=== PATIENT | female | born 1965 | race Caucasian/White ===

== ENCOUNTER → 2021-03-31 12:26 | Outpatient (BNVA) | payer MEDICARE, MEDICAID, SELFPAY | PROVIDERS: Family Provider Internal Medicine; PCP Internal Medicine; Visit Provider Family Medicine | DX: Z20.822 Contact with and (suspected) exposure to COVID-19 (principal) | CPT/HCPCS: 87635 ==

== ENCOUNTER 2021-04-03 09:04 | Inpatient (IN) | payer MEDICARE, MEDICAID, SELFPAY ==
[2021-04-03] VITALS (35 sets, daily range): BP systolic 68–161; BP diastolic 46–107; PULSE 78–118; RESP 15–36; TEMP 36.8–37.1; O2SAT 86–100; BMI 29.0
--- NOTE | 2021-04-03 09:05 | ED_ITS ---
Documented by User: Kurt Mann DO 04/06/21 09:50 HPI - COVID General: Chief Complaint: Shortness of Breath/Dyspnea Stated Complaint: SOB/ N/V/ WEAKNESS Time Seen by Provider: 04/03/21 09:05 History of Present Illness: HPI Narrative: 55-year-old female who presents to the emergency room complaining of being sick for the last 2 weeks. She was seen in urgent care on 03 31 and reports having had a Covid test. She called EMS because she was increasingly short of breath they found her to be at 76% on room air she corrects into the upper 90s with 6 L by nasal cannula. She has myalgias fatigue and had had some loose stools as well. She was placed on Ceftin and a cough medicine on 03 27.. She has a history of hypertension and reflux as well as hypothyroidism. A PCR Covid test on 03/31 was positive patient was not aware of it until we informed her today. MD complaint: known COVID positive Prior covid testing: yes, results known Prior testing date: 03/31/21 COVID 19 common symptoms: positive fever(s), chills, cough, non-productive cough, dyspnea, fatigue, body aches, throat pain, nasal congestion, nausea and diarrhea; negative loss of sense of smell and/or taste COVID 19 other sytmptoms: positive requiring oxygen; negative chest pain Onset (ago): day(s) (+10) Severity: severe Pertinent comorbid conditions: hypertension Treatment prior to arrival: cold medicine and antibiotics COVID Results: SARS-CoV-2 RNA (RT-PCR) Detected (NOT DETECTED) A 03/31/21 12:26 03/31/21 Review of Systems Const: Reports: fever(s), chills, body aches and fatigue ENMT: Reports: throat pain and nasal congestion Card: Denies: chest pain, edema, dyspnea on exertion or orthopnea Resp: Reports: dyspnea and non-productive cough GI: Reports: nausea and diarrhea : Denies: flank pain, difficulty voiding, dysuria, urinary frequency or urinary urgency Skin/Breast: Denies: rash or pruritus PFSH ED PFSH: Medical History (Updated 04/06/21 @ 09:50 by Kurt Mann DO) Affective personality disorder Anxiety state Arthritis Dependent personality disorder Depression GERD (gastroesophageal reflux disease) History of dysthymic disorder Hypothyroidism IBS (irritable bowel syndrome) Obsessive compulsive disorder Onychomycosis of toenail Surgical History Hx of bladder repair surgery Family History Family/Other Diabetes Denies family history of CAD (coronary artery disease) Clotting disorder Dementia Hyperlipidemia Psychiatric illness Chronic kidney disease (CKD) Suicide Anesthesia complication Bleeding disorder Family history of premature coronary artery disease Lung disease Cancer Hypertension Stroke Social History Smoking and tobacco status: never smoked Alcohol intake: never Current occupational status: disabled Physical Exam Const: GENERAL APPEARANCE: cooperative ORIENTATION/CONSCIOUSNESS: Yes awake, Yes oriented to person, Yes oriented to place and Yes oriented to time HENMT: COMMON NORMALS: normocephalic, atraumatic and hearing grossly normal bilaterally HEAD & SCALP: normocephalic and atraumatic Neck/C-Spine: COMMON NORMALS: no JVD Resp: EFFORT & INSPECTION: Yes tachypneic AUSCULTATION: crackles, wheezes and diminished lung sounds Cardio: COMMON NORMALS: no JVD, regular rate and No murmurs present (Cardio) RATE: regular rate and tachycardic GI: COMMON NORMALS: Soft to palpation and No hepatosplenomegaly present AUSCULTATION: Yes normoactive bowel sounds PALPATION: Yes Soft to palpation, No Tenderness to palpation present (GI), No Guarding due to palpation present (GI) and Yes No hepatosplenomegaly present Extremity: COMMON NORMALS: normal to inspection, capillary refill normal, no clubbing, cyanosis or edema, no calf tenderness and no pedal edema Neuro: SENSORIUM/ORIENTATION: Yes oriented to person, Yes oriented to place and Yes oriented to time Skin: COMMON NORMALS: no rashes or lesions noted GENERAL SKIN EXAM: no rashes or lesions noted Procedures Intubation Time out performed: Yes sedative: Etomidate paralytic: Vecuronium Laryngoscope: fiber optic video scope Assist Device Used: Bougie ET Tube Size: 7.5 ET Tube Uncuffed: No Tube Secured Depth (cm): 22 Tube Placement Confirmation: visualized tube passing through cords, equal breath sounds bilaterally, no breath sounds over epigastrium and confirmation by capnometry Intubation Complications: difficult intubation Additional Comments: Strongly difficult intubation. Dr. Weaver initially made an attempt was unable to visualize the cord we then bagged the patient and I made an attempt at difficulty due to her anatomy initializing visualizing the cords. Attempt was abandoned again and patient was hyperventilated. Third attempt was made with a bougie lower unable to get into position with the bougie. Equipment was readjusted and on the fourth attempt was able to get the bougie into place. We were able to get a 7.5 to pass over the bougie we had good color change on the capnometer and good breath sounds. Her sats are improving. Intubation was also complicated by a tear of the posterior pharyngeal wall on the right no significant bleeding was noted. Course Vital Signs: Vital signs: Vital Signs Temperature 98.2 F 04/03/21 16:00 Pulse Rate 70 04/04/21 13:30 Respiratory Rate 18 04/04/21 13:30 Blood Pressure 84/58 04/04/21 13:30 Pulse Oximetry 95 04/04/21 13:30 MDM - COVID MDM Narrative: Medical decision making narrative: She continued to deteriorate while in the ER. Ultimately ended up requiring intubation. Due to her anatomy she was an extremely difficult intubation. Hospitalist was consulted she is maintained in the ER until we are able to find a bed to transfer to a different facility. She was transferred because there is no ICU beds available in our facility. Patient had a prolonged ER stay due to regional shortage of ICU beds and was managed in the emergency room. Lab Data: Labs: Lab Results 04/03/21 04/03/21 04/03/21 Range/Units 09:20 09:20 09:20 WBC 11.7 H (4.0-10.0) 10^3/ uL RBC 4.50 (4.1-5.3) 10^6/u L Hgb 13.4 (11.5-15.3) g/dL Hct 42.1 (37.0-47.0) % MCV 93.6 (81-99) fL MCH 29.8 (28.0-34.0) pg MCHC 31.8 (30.0-36.0) g/dL RDW 15.2 H (12.1-15.1) % Plt Count 230 (130-400) 10^3/c mm MPV 10.5 H (7.4-10.4) fL Neut % (Auto) 90.6 % Lymph % (Auto) 4.8 % [place] % (Auto) 3.4 % Eos % (Auto) 0.1 % Baso % (Auto) 0.3 % Neut # (Auto) 10.62 H (1.8-7.7) 10^3/u L Lymph # (Auto) 0.6 L (0.8-4.8) 10^3/u L [place] # (Auto) 0.4 (0.2-0.9) 10^3/u L Eos # (Auto) 0.0 (0.0-0.8) 10^3/u L Baso # (Auto) 0.0 (0.0-0.1) 10^3/u L Nucleated RBC % (a uto) 0 % Nucleated RBCs # 0.0 /100WBC D-Dimer 1.60 H (0-0.59) ug/mIFE U Specimen Type Sample Site ABG pH (7.35-7.45) ABG pCO2 (35-45) mmHg ABG pO2 (80.0-100.0) mmH g ABG HCO3 (22-26) mmol/L ABG O2 Saturation ABG Base Excess (-2.0-2.0) mmol/ L Lavelle Test A-a O2 Gradient (5-10) mmHg Hematocrit (37-47) % Hgb O2 Saturation (95-100) % Carboxyhemoglobin (0.4-20.1) %THgb Methemoglobin (0.4-1.5) % Total Hemoglobin (12-16) g/dL Ionized Calcium (1.1-1.4) mmol/L O2 Delivery Device O2 Liters/Min % FiO2 % Tidal Volume PEEP cmH20 Guest Experience Captain ID Sodium 135 L (136-145) mmol/L Potassium 4.4 (3.5-5.1) mmol/L Chloride 100 (98-107) mmol/L Carbon Dioxide 24 (22-29) mmol/L Anion Gap 15.4 (5-19) BUN 15 (6-20) mg/dL Creatinine 1.0 H (0.5-0.9) mg/dL GFR Calculation 57.1 L (90-130) mL/min Glucose 192 H (65-115) mg/dL Calculated Osmolal ity 286 (285-295) mOsm/k g Lactic Acid (0.5-2.2) mmol/L Calcium 7.4 L (8.5-10.5) mg/dL Total Bilirubin 0.2 (0.15-1.2) mg/dL AST 44 H (0-32) U/L ALT 32 (0-33) U/L Alkaline Phosphata se 87 (35-105) IU/L Creatine Kinase 267 H (26-192) U/L C-Reactive Protein 175.9 H (0.0-4.9) mg/L NT-Pro-B Natriuret Pep 369 H (0-125) pg/mL Total Protein 5.2 L (6.6-8.7) g/dL Albumin 2.7 L (3.5-5.2) g/dL Globulin 2.5 (1.3-4.6) g/dL Procalcitonin (0-0.5) ng/mL 04/03/21 04/03/21 04/03/21 Range/Units 09:20 09:20 09:49 WBC (4.0-10.0) 10^3/ uL RBC (4.1-5.3) 10^6/u L Hgb (11.5-15.3) g/dL Hct (37.0-47.0) % MCV (81-99) fL MCH (28.0-34.0) pg MCHC (30.0-36.0) g/dL RDW (12.1-15.1) % Plt Count (130-400) 10^3/c mm MPV (7.4-10.4) fL Neut % (Auto) % Lymph % (Auto) % [place] % (Auto) % Eos % (Auto) % Baso % (Auto) % Neut # (Auto) (1.8-7.7) 10^3/u L Lymph # (Auto) (0.8-4.8) 10^3/u L [place] # (Auto) (0.2-0.9) 10^3/u L Eos # (Auto) (0.0-0.8) 10^3/u L Baso # (Auto) (0.0-0.1) 10^3/u L Nucleated RBC % (a uto) % Nucleated RBCs # /100WBC D-Dimer (0-0.59) ug/mIFE U Specimen Type Arterial Sample Site Radial, right ABG pH 7.45 (7.35-7.45) ABG pCO2 32.6 L (35-45) mmHg ABG pO2 45.7 L (80.0-100.0) mmH g ABG HCO3 22.7 (22-26) mmol/L ABG O2 Saturation 83.6 ABG Base Excess -0.5 (-2.0-2.0) mmol/ L Lavelle Test Pos A-a O2 Gradient 29.5 H (5-10) mmHg Hematocrit 43.1 (37-47) % Hgb O2 Saturation 82.0 L (95-100) % Carboxyhemoglobin 1.0 (0.4-20.1) %THgb Methemoglobin 1.0 (0.4-1.5) % Total Hemoglobin 14.1 (12-16) g/dL Ionized Calcium 1.1 (1.1-1.4) mmol/L O2 Delivery Device Nc O2 Liters/Min 6.0 % FiO2 44.0 % Tidal Volume PEEP cmH20 Guest Experience Captain ID Amh Sodium 137.0 (136-145) mmol/L Potassium 3.9 (3.5-5.1) mmol/L Chloride (98-107) mmol/L Carbon Dioxide (22-29) mmol/L Anion Gap (5-19) BUN (6-20) mg/dL Creatinine (0.5-0.9) mg/dL GFR Calculation (90-130) mL/min Glucose 177.0 H (65-115) mg/dL Calculated Osmolal ity (285-295) mOsm/k g Lactic Acid 1.6 (0.5-2.2) mmol/L Calcium (8.5-10.5) mg/dL Total Bilirubin (0.15-1.2) mg/dL AST (0-32) U/L ALT (0-33) U/L Alkaline Phosphata se (35-105) IU/L Creatine Kinase (26-192) U/L C-Reactive Protein (0.0-4.9) mg/L NT-Pro-B Natriuret Pep (0-125) pg/mL Total Protein (6.6-8.7) g/dL Albumin (3.5-5.2) g/dL Globulin (1.3-4.6) g/dL Procalcitonin 0.25 (0-0.5) ng/mL 04/03/21 04/03/21 Range/Units 13:43 16:33 WBC (4.0-10.0) 10^3/ uL RBC (4.1-5.3) 10^6/u L Hgb (11.5-15.3) g/dL Hct (37.0-47.0) % MCV (81-99) fL MCH (28.0-34.0) pg MCHC (30.0-36.0) g/dL RDW (12.1-15.1) % Plt Count (130-400) 10^3/c mm MPV (7.4-10.4) fL Neut % (Auto) % Lymph % (Auto) % [place] % (Auto) % Eos % (Auto) % Baso % (Auto) % Neut # (Auto) (1.8-7.7) 10^3/u L Lymph # (Auto) (0.8-4.8) 10^3/u L [place] # (Auto) (0.2-0.9) 10^3/u L Eos # (Auto) (0.0-0.8) 10^3/u L Baso # (Auto) (0.0-0.1) 10^3/u L Nucleated RBC % (a uto) % Nucleated RBCs # /100WBC D-Dimer (0-0.59) ug/mIFE U Specimen Type Arterial Arterial Sample Site Radial, left Radial, left ABG pH 7.44 7.23 L (7.35-7.45) ABG pCO2 33.7 L 50.6 H (35-45) mmHg ABG pO2 48.0 L 174.0 H (80.0-100.0) mmH g ABG HCO3 23.1 21.3 L (22-26) mmol/L ABG O2 Saturation 85.5 ABG Base Excess -0.4 -6.8 L (-2.0-2.0) mmol/ L Lavelle Test Pos Pos A-a O2 Gradient 46.5 H (5-10) mmHg Hematocrit 44.6 50.0 H (37-47) % Hgb O2 Saturation 83.9 L (95-100) % Carboxyhemoglobin 0.9 (0.4-20.1) %THgb Methemoglobin 1.0 (0.4-1.5) % Total Hemoglobin 14.6 (12-16) g/dL Ionized Calcium 1.1 (1.1-1.4) mmol/L O2 Delivery Device Nc Vent O2 Liters/Min 40.0 % FiO2 63.0 100.0 % Tidal Volume 0.43 PEEP 10.0 cmH20 Guest Experience Captain ID Buttr Amh Sodium 141.0 (136-145) mmol/L Potassium 4.4 (3.5-5.1) mmol/L Chloride (98-107) mmol/L Carbon Dioxide (22-29) mmol/L Anion Gap (5-19) BUN (6-20) mg/dL Creatinine (0.5-0.9) mg/dL GFR Calculation (90-130) mL/min Glucose 145.0 H (65-115) mg/dL Calculated Osmolal ity (285-295) mOsm/k g Lactic Acid (0.5-2.2) mmol/L Calcium (8.5-10.5) mg/dL Total Bilirubin (0.15-1.2) mg/dL AST (0-32) U/L ALT (0-33) U/L Alkaline Phosphata se (35-105) IU/L Creatine Kinase (26-192) U/L C-Reactive Protein (0.0-4.9) mg/L NT-Pro-B Natriuret Pep (0-125) pg/mL Total Protein (6.6-8.7) g/dL Albumin (3.5-5.2) g/dL Globulin (1.3-4.6) g/dL Procalcitonin (0-0.5) ng/mL COVID Results: SARS-CoV-2 RNA (RT-PCR) Detected (NOT DETECTED) A 03/31/21 12:26 03/31/21 Critical Care Time Critical Care Time: Critical Care Time: Yes Total Critical Care Time: 60 Attestation: This case had a high probability of a clinically significant, sudden, or life threatening deterioration of this patient's condition which required my full and direct attention, intervention and personal management. Discharge Plan Discharge Patient Disposition: Xfer Short-Term Hosp Clinical Impression: COVID-19, Respiratory failure, Obesity, Hyperkalemia, Pulmonary emboli Discharge Orders: Transfer Out of Facility (Order); Ordered 04/04/21 Ordered By: Giovani Schluz Coding Level of Care Code ED Secondary Art Teacher for Chg Fwd Exam Comprehensive Documented by User: Corbin Curry MD 04/03/21 20:23 HPI - COVID General: Chief Complaint: Shortness of Breath/Dyspnea Stated Complaint: SOB/ N/V/ WEAKNESS Time Seen by Provider: 04/03/21 09:05 COVID Results: SARS-CoV-2 RNA (RT-PCR) Detected (NOT DETECTED) A 03/31/21 12:26 03/31/21 PFS ED PFSH: Medical History (Updated 04/06/21 @ 09:50 by Kurt Mann DO) Affective personality disorder Anxiety state Arthritis Dependent personality disorder Depression GERD (gastroesophageal reflux disease) History of dysthymic disorder Hypothyroidism IBS (irritable bowel syndrome) Obsessive compulsive disorder Onychomycosis of toenail Surgical History Hx of bladder repair surgery Family History Family/Other Diabetes Denies family history of CAD (coronary artery disease) Clotting disorder Dementia Hyperlipidemia Psychiatric illness Chronic kidney disease (CKD) Suicide Anesthesia complication Bleeding disorder Family history of premature coronary artery disease Lung disease Cancer Hypertension Stroke Social History Smoking and tobacco status: never smoked Alcohol intake: never Current occupational status: disabled Procedures Central Line Placement Right IJ: Time Out Performed: Yes Patient Placed on Monitor/Pulse Ox: Yes Prep: mask, gown and gloves Central Line Prep: Chlorhexidine scrub and sterile drapes applied Ultrasound Used for Placement: Yes Central Line Lumen Inserted: triple Post Procedure: sutured in place, good blood return, all ports aspirated, flushed, capped and sterile dressing applied Post Procedure X-Ray: no pneumothorax seen and other (tip curled. repositioned and repeat xray. ) Patient Tolerated Procedure: well Complications: none Course Vital Signs: Vital signs: Vital Signs Temperature 98.2 F 04/03/21 16:00 Pulse Rate 70 04/04/21 13:30 Respiratory Rate 18 04/04/21 13:30 Blood Pressure 84/58 04/04/21 13:30 Pulse Oximetry 95 04/04/21 13:30 MDM - COVID Lab Data: Labs: Lab Results 04/03/21 04/03/21 04/03/21 Range/Units 09:20 09:20 09:20 WBC 11.7 H (4.0-10.0) 10^3/ uL RBC 4.50 (4.1-5.3) 10^6/u L Hgb 13.4 (11.5-15.3) g/dL Hct 42.1 (37.0-47.0) % MCV 93.6 (81-99) fL MCH 29.8 (28.0-34.0) pg MCHC 31.8 (30.0-36.0) g/dL RDW 15.2 H (12.1-15.1) % Plt Count 230 (130-400) 10^3/c mm MPV 10.5 H (7.4-10.4) fL Neut % (Auto) 90.6 % Lymph % (Auto) 4.8 % [place] % (Auto) 3.4 % Eos % (Auto) 0.1 % Baso % (Auto) 0.3 % Neut # (Auto) 10.62 H (1.8-7.7) 10^3/u L Lymph # (Auto) 0.6 L (0.8-4.8) 10^3/u L [place] # (Auto) 0.4 (0.2-0.9) 10^3/u L Eos # (Auto) 0.0 (0.0-0.8) 10^3/u L Baso # (Auto) 0.0 (0.0-0.1) 10^3/u L Nucleated RBC % (a uto) 0 % Nucleated RBCs # 0.0 /100WBC D-Dimer 1.60 H (0-0.59) ug/mIFE U Specimen Type Sample Site ABG pH (7.35-7.45) ABG pCO2 (35-45) mmHg ABG pO2 (80.0-100.0) mmH g ABG HCO3 (22-26) mmol/L ABG O2 Saturation ABG Base Excess (-2.0-2.0) mmol/ L Lavelle Test A-a O2 Gradient (5-10) mmHg Hematocrit (37-47) % Hgb O2 Saturation (95-100) % Carboxyhemoglobin (0.4-20.1) %THgb Methemoglobin (0.4-1.5) % Total Hemoglobin (12-16) g/dL Ionized Calcium (1.1-1.4) mmol/L O2 Delivery Device O2 Liters/Min % FiO2 % Tidal Volume PEEP cmH20 Guest Experience Captain ID Sodium 135 L (136-145) mmol/L Potassium 4.4 (3.5-5.1) mmol/L Chloride 100 (98-107) mmol/L Carbon Dioxide 24 (22-29) mmol/L Anion Gap 15.4 (5-19) BUN 15 (6-20) mg/dL Creatinine 1.0 H (0.5-0.9) mg/dL GFR Calculation 57.1 L (90-130) mL/min Glucose 192 H (65-115) mg/dL Calculated Osmolal ity 286 (285-295) mOsm/k g Lactic Acid (0.5-2.2) mmol/L Calcium 7.4 L (8.5-10.5) mg/dL Total Bilirubin 0.2 (0.15-1.2) mg/dL AST 44 H (0-32) U/L ALT 32 (0-33) U/L Alkaline Phosphata se 87 (35-105) IU/L Creatine Kinase 267 H (26-192) U/L C-Reactive Protein 175.9 H (0.0-4.9) mg/L NT-Pro-B Natriuret Pep 369 H (0-125) pg/mL Total Protein 5.2 L (6.6-8.7) g/dL Albumin 2.7 L (3.5-5.2) g/dL Globulin 2.5 (1.3-4.6) g/dL Procalcitonin (0-0.5) ng/mL 04/03/21 04/03/21 04/03/21 Range/Units 09:20 09:20 09:49 WBC (4.0-10.0) 10^3/ uL RBC (4.1-5.3) 10^6/u L Hgb (11.5-15.3) g/dL Hct (37.0-47.0) % MCV (81-99) fL MCH (28.0-34.0) pg MCHC (30.0-36.0) g/dL RDW (12.1-15.1) % Plt Count (130-400) 10^3/c mm MPV (7.4-10.4) fL Neut % (Auto) % Lymph % (Auto) % [place] % (Auto) % Eos % (Auto) % Baso % (Auto) % Neut # (Auto) (1.8-7.7) 10^3/u L Lymph # (Auto) (0.8-4.8) 10^3/u L [place] # (Auto) (0.2-0.9) 10^3/u L Eos # (Auto) (0.0-0.8) 10^3/u L Baso # (Auto) (0.0-0.1) 10^3/u L Nucleated RBC % (a uto) % Nucleated RBCs # /100WBC D-Dimer (0-0.59) ug/mIFE U Specimen Type Arterial Sample Site Radial, right ABG pH 7.45 (7.35-7.45) ABG pCO2 32.6 L (35-45) mmHg ABG pO2 45.7 L (80.0-100.0) mmH g ABG HCO3 22.7 (22-26) mmol/L ABG O2 Saturation 83.6 ABG Base Excess -0.5 (-2.0-2.0) mmol/ L Lavelle Test Pos A-a O2 Gradient 29.5 H (5-10) mmHg Hematocrit 43.1 (37-47) % Hgb O2 Saturation 82.0 L (95-100) % Carboxyhemoglobin 1.0 (0.4-20.1) %THgb Methemoglobin 1.0 (0.4-1.5) % Total Hemoglobin 14.1 (12-16) g/dL Ionized Calcium 1.1 (1.1-1.4) mmol/L O2 Delivery Device Nc O2 Liters/Min 6.0 % FiO2 44.0 % Tidal Volume PEEP cmH20 Guest Experience Captain ID Amh Sodium 137.0 (136-145) mmol/L Potassium 3.9 (3.5-5.1) mmol/L Chloride (98-107) mmol/L Carbon Dioxide (22-29) mmol/L Anion Gap (5-19) BUN (6-20) mg/dL Creatinine (0.5-0.9) mg/dL GFR Calculation (90-130) mL/min Glucose 177.0 H (65-115) mg/dL Calculated Osmolal ity (285-295) mOsm/k g Lactic Acid 1.6 (0.5-2.2) mmol/L Calcium (8.5-10.5) mg/dL Total Bilirubin (0.15-1.2) mg/dL AST (0-32) U/L ALT (0-33) U/L Alkaline Phosphata se (35-105) IU/L Creatine Kinase (26-192) U/L C-Reactive Protein (0.0-4.9) mg/L NT-Pro-B Natriuret Pep (0-125) pg/mL Total Protein (6.6-8.7) g/dL Albumin (3.5-5.2) g/dL Globulin (1.3-4.6) g/dL Procalcitonin 0.25 (0-0.5) ng/mL 04/03/21 04/03/21 Range/Units 13:43 16:33 WBC (4.0-10.0) 10^3/ uL RBC (4.1-5.3) 10^6/u L Hgb (11.5-15.3) g/dL Hct (37.0-47.0) % MCV (81-99) fL MCH (28.0-34.0) pg MCHC (30.0-36.0) g/dL RDW (12.1-15.1) % Plt Count (130-400) 10^3/c mm MPV (7.4-10.4) fL Neut % (Auto) % Lymph % (Auto) % [place] % (Auto) % Eos % (Auto) % Baso % (Auto) % Neut # (Auto) (1.8-7.7) 10^3/u L Lymph # (Auto) (0.8-4.8) 10^3/u L [place] # (Auto) (0.2-0.9) 10^3/u L Eos # (Auto) (0.0-0.8) 10^3/u L Baso # (Auto) (0.0-0.1) 10^3/u L Nucleated RBC % (a uto) % Nucleated RBCs # /100WBC D-Dimer (0-0.59) ug/mIFE U Specimen Type Arterial Arterial Sample Site Radial, left Radial, left ABG pH 7.44 7.23 L (7.35-7.45) ABG pCO2 33.7 L 50.6 H (35-45) mmHg ABG pO2 48.0 L 174.0 H (80.0-100.0) mmH g ABG HCO3 23.1 21.3 L (22-26) mmol/L ABG O2 Saturation 85.5 ABG Base Excess -0.4 -6.8 L (-2.0-2.0) mmol/ L Lavelle Test Pos Pos A-a O2 Gradient 46.5 H (5-10) mmHg Hematocrit 44.6 50.0 H (37-47) % Hgb O2 Saturation 83.9 L (95-100) % Carboxyhemoglobin 0.9 (0.4-20.1) %THgb Methemoglobin 1.0 (0.4-1.5) % Total Hemoglobin 14.6 (12-16) g/dL Ionized Calcium 1.1 (1.1-1.4) mmol/L O2 Delivery Device Nc Vent O2 Liters/Min 40.0 % FiO2 63.0 100.0 % Tidal Volume 0.43 PEEP 10.0 cmH20 Guest Experience Captain ID Buttr Amh Sodium 141.0 (136-145) mmol/L Potassium 4.4 (3.5-5.1) mmol/L Chloride (98-107) mmol/L Carbon Dioxide (22-29) mmol/L Anion Gap (5-19) BUN (6-20) mg/dL Creatinine (0.5-0.9) mg/dL GFR Calculation (90-130) mL/min Glucose 145.0 H (65-115) mg/dL Calculated Osmolal ity (285-295) mOsm/k g Lactic Acid (0.5-2.2) mmol/L Calcium (8.5-10.5) mg/dL Total Bilirubin (0.15-1.2) mg/dL AST (0-32) U/L ALT (0-33) U/L Alkaline Phosphata se (35-105) IU/L Creatine Kinase (26-192) U/L C-Reactive Protein (0.0-4.9) mg/L NT-Pro-B Natriuret Pep (0-125) pg/mL Total Protein (6.6-8.7) g/dL Albumin (3.5-5.2) g/dL Globulin (1.3-4.6) g/dL Procalcitonin (0-0.5) ng/mL COVID Results: SARS-CoV-2 RNA (RT-PCR) Detected (NOT DETECTED) A 03/31/21 12:26 03/31/21 Discharge Plan Discharge Patient Disposition: Xfer Short-Term Hosp Clinical Impression: COVID-19, Respiratory failure, Obesity, Hyperkalemia, Pulmonary emboli Discharge Orders: Transfer Out of Facility (Order); Ordered 04/04/21 Ordered By: Giovani Schulz Coding Level of Care Code ED Secondary Art Teacher for Chg Fwd Exam Comprehensive
--- NOTE | 2021-04-03 09:25 | PC.NURSE ---
patient c/o chest pain with cough, denied any chest pain at this time. c/o weakness, body ache.
--- NOTE | 2021-04-03 09:27 | XRR_ITS ---
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 Views: 1 view. COMPARISON: CT abdomen pelvis w con* [id number] 06/13/2016 1:29 PM FINDINGS: Lungs: Patchy diffuse interstitial and alveolar airspace disease throughout much of the right lung most pronounced in the mid lung and lower lobe and to a lesser degree on the left. Edema and/or pneumonia. Pleural spaces: Moderate subpulmonic effusion on the right. Heart/Mediastinum: Unremarkable. No cardiomegaly. Bones/joints: Unremarkable. XR/XR chest 1V portable [id number] IMPRESSION: 1. Patchy diffuse interstitial and alveolar airspace disease throughout much of the right lung most pronounced in the mid lung and lower lobe and to a lesser degree on the left. Edema and/or pneumonia. Likely infectious. 2. Moderate subpulmonic effusion on the right.
[2021-04-03 09:37] LABS: Basophils % 0.3 %; Eosinophils % 0.1 %; Hematocrit 42.1 % (37.0-47.0); Hemoglobin 13.4 g/dL (11.5-15.3); Lymphocytes # 0.6 10^3/uL (0.8-4.8); Lymphocytes % 4.8 %; Mean Corpuscular HGB Conc 31.8 g/dL (30.0-36.0); Mean Corpuscular Hemoglobin 29.8 pg (28.0-34.0); Mean Corpuscular Volume 93.6 fL (81-99); Mean Platelet Volume 10.5 fL (7.4-10.4); Monocytes # 0.4 10^3/uL (0.2-0.9); Monocytes % 3.4 %; Neutrophils # 10.62 10^3/uL (1.8-7.7); Neutrophils % 90.6 %; Nucleated Red Blood Cells % 0 %; Platelet Count 230 10^3/cmm (130-400); Red Cell Distribution Width 15.2 % (12.1-15.1); White Blood Count 11.7 10^3/uL (4.0-10.0)
[2021-04-03 09:55] LABS: Lactic Sepsis W/Reflex 1.6 mmol/L (0.5-2.2)
[2021-04-03 10:00] LABS: ABG PCO2 32.6 mmHg (35-45); ABG PH Result 7.45 (7.35-7.45); Alveolar-Arterial Oxygen Gradi 29.5 mmHg (5-10); Arterial Blood Gas Hematocrit 43.1 % (37-47); Base Excess ABG -0.5 mmol/L (-2.0-2.0); Blood Gas Allen Test Pos; Blood Gas Operator Identificat AMH; Blood Gas Sample Site Radial, right; Blood Gas Sample Type Arterial; HCO3 ABG 22.7 mmol/L (22-26); Ionized Calcium Level - ABG 1.1 mmol/L (1.1-1.4); Oxygen Device NC; Oxygen Saturation ABG 83.6; PO2 ABG 45.7 mmHg (80.0-100.0); Potassium Level - ABG 3.9 mmol/L (3.5-5.0); Total Hemoglobin 14.1 g/dL (12-16)
[2021-04-03 10:08] LABS: Alanine Aminotransferase 32 U/L (0-33); Albumin Level 2.7 g/dL (3.5-5.2); Alkaline Phosphatase 87 IU/L (35-105); Anion Gap 15.4 (5-19); Aspartate Amino Transferase 44 U/L (0-32); Blood Urea Nitrogen 15 mg/dL (6-20); C Reactive Protein 175.9 mg/L (0.0-4.9); Calcium 7.4 mg/dL (8.5-10.5); Carbon Dioxide 24 mmol/L (22-29); Chloride 100 mmol/L (98-107); Creatine Phosphokinase 267 U/L (26-192); Globulin 2.5 g/dL (1.3-4.6); Glomerular Filtration Rate 57.1 mL/min (90-130); Glucose 192 mg/dL (65-115); NT Pro B Type Natriuretic Pept 369 pg/mL (0-125); Osmolality Calculated 286 mOsm/kg (285-295); Potassium 4.4 mmol/L (3.5-5.1); Sodium 135 mmol/L (136-145); Total Bilirubin 0.2 mg/dL (0.15-1.2); Total Protein 5.2 g/dL (6.6-8.7)
[2021-04-03] MEDS: dexamethasone 10 mg/mL INJ 6 MG IVP (10:30)
--- NOTE | 2021-04-03 10:45 | PC.PHAR ---
pt states she takes care of her own medications-pt states she hasnt taken blood pressure medications for almost a year-pt brought in some medication bottles-pt brought in BASE Inczal dated 11/25/2019 pt states she doesnt take-pt states since she has been sick she has been taking a 325mg aspirin prn and cold max prn -pt states she is still taking cefdinir rx filled on 03/27/21 10d/s-pt states she is unsure when she last took her medications-
--- NOTE | 2021-04-03 10:46 | CT_ITS ---
WS: [id number] CTA OF THE CHEST WITH PULMONARY EMBOLISM PROTOCOL TECHNIQUE: High-resolution contrast enhanced CTA of the chest with coronal and sagittal reformatted i mages with pulmonary embolism protocol. MIP images are also reviewed. CLINICAL INFORMATION: Covid hypoxia COMPARISON: None. DLP: 597.[address] scans at [facility] use at least one of these dose optimization techniques: automat ed exposure control; mA and/or kV adjustment per patient size (includes targeted exams where dose is matched to clinical indication); or iterative reconstruction. FINDINGS: Proximal main pulmonary arteries are normal. Small filling defects in the segmental left up per and left lower lobe pulmonary arteries compatible with pulmonary embolus. Proximal main pulmonary arteries are normal. Suggestion of tiny weblike linear filling defects in the right proximal segment al pulmonary arteries. Small bilateral pleural effusions. Diffuse hazy groundglass infiltrates throughout both lungs compati ble with COVID 19 pneumonia. Developing airspace consolidation right upper lobe laterally. Reactive l ymph nodes with bronchovascular thickening. Aberrant right subclavian artery. Cholecystectomy clips. Small esophageal hiatal hernia. Fatty atrophy of the pancreas. CT/CT angio chest PE protcl [id number] IMPRESSION: 1. Small filling defects in the left greater than right segmental and subsegme ntal pulmonary arteries consistent with pulmonary embolus. Proximal main pulmon rubin arteries are normal. 2. Diffuse bilateral hazy groundglass infiltrates compatible with COVID 19 pne umonia. 3. Partial airspace consolidation involving the right upper lobe laterally. 4. Small right pleural effusion. Notified Kurt Mann DO at 04/03/2021 11:56 AM.
[2021-04-03] MEDS: remdesivir 200 MG in sodium chloride 0.9% (100 ml) 100 ML 100 MG IV (11:10)
[2021-04-03] MEDS: iodixanol 320 mg/mL 100mL Btl IV (11:23)
[2021-04-03] MEDS: enoxaparin 80 mg/0.8 mL Syringe SUBCUT (13:07)
[2021-04-03 13:55] LABS: ABG PCO2 33.7 mmHg (35-45); ABG PH Result 7.44 (7.35-7.45); Arterial Blood Gas Hematocrit 44.6 % (37-47); Base Excess ABG -0.4 mmol/L (-2.0-2.0); Blood Gas Allen Test Pos; Blood Gas Sample Site Radial, left; Blood Gas Sample Type Arterial; Carboxyhemoglobin 0.9 %THgb (0.4-20.1); HCO3 ABG 23.1 mmol/L (22-26); HGB O2 Sat 83.9 % (95-100); Ionized Calcium Level - ABG 1.1 mmol/L (1.1-1.4); Oxygen Device NC; Oxygen Saturation ABG 85.5; Potassium Level - ABG 4.4 mmol/L (3.5-5.0); Total Hemoglobin 14.6 g/dL (12-16)
[2021-04-03 13:56] LABS: Alveolar-Arterial Oxygen Gradi 46.5 mmHg (5-10)
[2021-04-03] MEDS: vecuronium 10 mg SDV IVP ×2 (14:49→15:13)
--- NOTE | 2021-04-03 15:07 | XR_ITS ---
WS: [id number] PORTABLE CHEST HISTORY: Intubation placement COMPARISON: 04/03/2021 Endotracheal tube has been placed in good position ending 2 cm above the mayur. Nasogastric tube has also been positioned with the distal tip in the LEFT upper abdomen. Proximal port is at the GE junct ion. Recommend advancing the NG tube another 10 cm for more optimal positioning. Diffuse bilateral multifocal opacifications, greatest throughout the RIGHT lung. No pneumothorax. No pneumomediastinum or pneumopericardium. No pleural effusion or pneumothorax. Cardiac size: Normal. Mediastinum/Aorta: Normal mediastinum. No osseous abnormality seen. XR/XR chest 1V portable [id number] IMPRESSION: 1. Endotracheal tube in good position. 2. Recommend advancing NG tube another 10 cm for more optimal positioning. 3. Bilateral diffuse pulmonary opacifications, RIGHT greater than LEFT. Consis tent with Covid 19.
[2021-04-03] MEDS: propofol 10 mg/mL SDV 20 mL 100 MG IVP (15:15)
--- NOTE | 2021-04-03 15:24 | P.HP_ITS ---
Providers/Chief Complaint Primary Care Provider: Mik Vo DO Chief Complaint: SOB/ N/V/ WEAKNESS History of Present Illness Karyn Jamison is a 55 year old female who at this point is a consult done through the emergency department. Unfortunately we do not have any ICU beds. This patient came in with significant dyspnea, and progressed rapidly to needing mechanical ventilation after high flow oxygen was tried. When I arrived the patient was being prepped for intubation and further history and physical was not possible. From my understanding she initially saw primary care provider on March 27 with cough and refused Covid testing. She was seen by telemedicine visit on the and agreed to a swab at that time which was positive. She had fever cough at that point in time but was not hypoxic. Review of Systems General: Reports: ROS unobtainable due to endotracheal tube Medications/Allergies Home Medications Medication Instructions Recorded Confirmed Last Taken Type montelukast 10 mg tablet 10 mg PO QAM 06/21/20 04/03/21 Unknown History omeprazole 20 mg capsule,delayed 20 mg PO DAILY PRN 06/21/20 04/03/21 Unknown History release cefdinir 300 mg capsule 300 mg PO BID #20 cap 03/27/21 04/03/21 Unknown Rx chlorpheniramine 4 5 ml PO Q6H PRN #160 ml 03/27/21 04/03/21 Unknown Rx mg-phenylephrine 10 mg-DM 15 mg/5 mL oral liquid aspirin 325 mg PO PRN 04/03/21 04/03/21 Unknown History azelastine 2 spray INTRANASAL PRN 04/03/21 04/03/21 Unknown History [id number]-TA-acetaminophen See Rx Instructions .ROUTE .COMPLEX 04/03/21 04/03/21 Unknown History [Cold Max Day-Night] diphenhydramine HCl [Benadryl] 25 mg PO PRN 04/03/21 04/03/21 Unknown History fluticasone propionate [Flonase] 2 spray INTRANASAL PRN 04/03/21 04/03/21 Unknown History ketoconazole 1 applic TOPICAL PRN 04/03/21 04/03/21 Unknown History levothyroxine 50 mcg PO QAM 04/03/21 04/03/21 Unknown History mupirocin 1 applic TOPICAL PRN 04/03/21 04/03/21 Unknown History Allergies Allergy/AdvReac Type Severity Reaction Status Date / Time guaifenesin Allergy Unknown Verified 04/03/21 10:45 PFSH Acute PFSH: Medical History (Updated 04/03/21 @ 15:34 by Giovani Schulz MD) Affective personality disorder Anxiety state Arthritis Dependent personality disorder Depression GERD (gastroesophageal reflux disease) History of dysthymic disorder Hypothyroidism IBS (irritable bowel syndrome) Obsessive compulsive disorder Onychomycosis of toenail Surgical History Hx of bladder repair surgery Family History Family/Other Diabetes Denies family history of CAD (coronary artery disease) Clotting disorder Dementia Hyperlipidemia Psychiatric illness Chronic kidney disease (CKD) Suicide Anesthesia complication Bleeding disorder Family history of premature coronary artery disease Lung disease Cancer Hypertension Stroke Social History Smoking and tobacco status: never smoked Alcohol intake: never Current occupational status: disabled Vitals/I&O/Wt Last Vital Signs Temp 98.8 F 04/03/21 13:13 Pulse 101 H 04/03/21 14:01 Resp 32 H 04/03/21 13:13 BP 133/81 04/03/21 14:01 Pulse Ox 92 04/03/21 14:01 Weight last 48 hrs Weight 76.657 kg Physical Exam Narrative: EXAM NARRATIVE: General exam is an intubated and sedated female HEENT: Atraumatic and normocephalic. Pupils equally round. Oropharyngeal tube and endotracheal tube noted. 7-1/2 endotracheal tube. Neck is supple no lymphadenopathy or thyromegaly Cardiovascular r tachycardic, regular without murmur Lungs coarse breath sounds bilaterally Abdomen is soft with positive bowel sounds. No obvious organomegaly. deferred. Pierre to be placed Extremities no cyanosis clubbing or edema, cap refill brisk Skin no rash Neuro no obvious focal deficits Data : 04/03/21 09:20 04/03/21 09:20 Micro: Microbiology 04/03/21 10:30 Blood Culture - Preliminary Blood SPECIMEN COLLECTED 04/03/21 10:00 Blood Culture - Preliminary Blood SPECIMEN COLLECTED Other data: CK elevated at 267. CRP 175. BNP 369. Albumin 2.7. Lactic acid 1.6. AST slightly high at 44. ABG demonstrated pH 7.44, PCO2 of 33, PO2 of 48 on 63% FiO2 CTA demonstrated some small double filling defects consistent with subsegmental pulmonary emboli and airspace disease consistent with Covid. Small right pleural effusion was also noted. Blood cultures were drawn A&P Assessment and plan (1) Acute respiratory failure with hypoxia: Intubated and sedated in the emergency department Agree with Versed and fentanyl currently Could consider paralyzation with Nimbex if any discordance with the ventilator, persistent hypoxia, need to prone MRSA PCR Procalcitonin level. If negative consider Tocilizumab Remdesivir Dexamethasone ABG in 1 hour following intubation Await stat portable chest x-ray done following intubation Empiric Zosyn Secondary to elevated BNP, right pleural effusion, tenuous respiratory status will give 20 mg of Lasix IV x1. Could consider echo in the near future Status: Acute (2) Pneumonia due to COVID-19 virus: See notations above Status: Acute (3) Pulmonary emboli: Therapeutic dose of Lovenox given at noon on 04/03. At next dosing interval will change to heparin weight-based protocol as multiple procedures may be required Status: Acute (4) Elevated CK: Repeat tomorrow Not candidate for large amounts of fluids secondary to COVID-19 pneumonia/ARDS Status: Acute Additional A&P Information Full code Lovenox was retrieved at noon 04/03. In 12 hours this should be converted to heparin as procedures may be needed during this individual's ICU course. Attestations Medical Necessity Statement*: Will need greater than 2 midnight stay. At this point my understanding is transfer is trying to be arranged as no beds are available here. Should a bed be come available, progression to the ICU and pulmonary critical care consultation will occur. Time Spent in Patient Care: Greater than 35 minutes Critical Care Time: The high probability of a clinically significant, sudden or life threatening deterioration of the patient's [pulmonary] system(s) required my full and direct attention, intervention and personal management. The critical care time is as shown. 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
[2021-04-03] MEDS: piperacillin-tazobactam 3.375 GM in sodium chloride 0.9% (plus) 50 ML IV (15:53)
[2021-04-03] MEDS: FUROsemide 10 mg/mL SDV 2mL 20 MG IVP (15:53)
[2021-04-03 16:12] LABS: Procalcitonin 0.25 ng/mL (0-0.5)
[2021-04-03] MEDS: sodium chloride 0.9% 1,000 ML 30 ML IV (16:39)
[2021-04-03 16:44] LABS: ABG PCO2 50.6 mmHg (35-45); ABG PH Result 7.23 (7.35-7.45); Base Excess ABG -6.8 mmol/L (-2.0-2.0); Blood Gas Allen Test Pos; Blood Gas Operator Identificat AMH; Blood Gas Sample Site Radial, left; Blood Gas Sample Type Arterial; Blood Gas Tidal Volume 0.43; HCO3 ABG 21.3 mmol/L (22-26); Oxygen Device VENT
--- NOTE | 2021-04-03 19:20 | PC.NURSE ---
patient intubated, f/c and OG tube in place. no s/s of pain at this time
[2021-04-03] MEDS: sodium chloride 0.9% 1,000 ML 999 ML IV (19:50)
--- NOTE | 2021-04-03 20:07 | XRR_ITS ---
PROCEDURE INFORMATION: Exam: XR Chest Exam date and time: 04/03/2021 8:07 PM Age: 55 years old Clinical indication: Device placement; Other: Central line RT. Side; Additional info: Central line placement TECHNIQUE: Imaging protocol: XR of the chest. Views: 1 view. COMPARISON: CR XR chest 1V portable [id number] 04/03/2021 3:31 PM FINDINGS: Tubes, catheters and devices: Intubation with tip 4.2 cm above the mayur. NG tube extends into the proximal stomach. Right IJ central line which appears looped within the and proximal SVC. Lungs: Dense ground-glass opacities throughout the right lung and in the central lung are unchanged. Pleural spaces: Air lucency along the right lung base could represent a right pneumothorax. Heart/Mediastinum: Unremarkable. No cardiomegaly. Bones/joints: Unremarkable. XR/XR chest 1V portable [id number] IMPRESSION: 1. Abnormal positioning of the right IJ central line which is looped in the proximal SVC. Repositioning recommended. 2. New air lucency along the right diaphragm could represent a small pneumothorax. Further evaluation with an upright view or left lateral decubitus view (if patient is unable to be upright) is recommended. 3. Stable pulmonary infiltrates.
--- NOTE | 2021-04-03 20:18 | XRR_ITS ---
PROCEDURE INFORMATION: Exam: XR Chest Exam date and time: 04/03/2021 8:18 PM Age: 55 years old Clinical indication: Device placement; Other: Central line; Additional info: Line placement TECHNIQUE: Imaging protocol: XR of the chest. Views: 1 view. COMPARISON: CR (CHEST, ) 04/03/2021 8:11 PM FINDINGS: Tubes, catheters and devices: Intubation with tip 4.1 cm above the mayur. The right IJ central line has been reposition with tip over the mid SVC. Lungs: Stable dense airspace opacities throughout the right lung. Slightly increased ground-glass opacities in the central left lung. Pleural spaces: The previous air lucency along the right diaphragm is less conspicuous and does not appear to represent a pneumothorax. Heart/Mediastinum: Unremarkable. No cardiomegaly. Bones/joints: Unremarkable. XR/XR chest 1V portable [id number] IMPRESSION: 1. Standard positioning of the right IJ central line. 2. No evidence for pneumothorax. 3. Slightly worsened pulmonary edema versus pneumonia or ARDS in the left lung.
[2021-04-03 21:36] LABS: ABG PCO2 37.6 mmHg (35-45); ABG PH Result 7.33 (7.35-7.45); Alveolar-Arterial Oxygen Gradi 52.6 mmHg (5-10); Arterial Blood Gas Hematocrit 39.3 % (37-47); Base Excess ABG -5.8 mmol/L (-2.0-2.0); Blood Gas Allen Test Pos; Blood Gas Sample Site Radial, right; Blood Gas Sample Type Arterial; Blood Gas Tidal Volume 0.45; Carboxyhemoglobin 0.3 %THgb (0.4-20.1); HCO3 ABG 19.7 mmol/L (22-26); HGB O2 Sat 97.3 % (95-100); Methemoglobin 0.8 % (0.4-1.5); Oxygen Device VENT; Oxygen Saturation ABG 98.4; Potassium Level - ABG 5.1 mmol/L (3.5-5.0); Total Hemoglobin 12.8 g/dL (12-16)
[2021-04-04] VITALS (21 sets, daily range): BP systolic 74–98; BP diastolic 57–69; PULSE 68–87; RESP 18–23; O2SAT 88–99
[2021-04-04] MEDS: heparin 5,000 unit/mL INJ 1 mL IV (02:40)
[2021-04-04] MEDS: heparin drip 25,000 UNIT/500 ML PREMIX 33.73 UNIT IV (03:40)
--- NOTE | 2021-04-04 07:00 | XRR_ITS ---
PROCEDURE INFORMATION: Exam: XR Chest Exam date and time: 04/04/2021 7:00 AM Age: 55 years old Clinical indication: Dyspnea; Additional info: Follow up resp failure TECHNIQUE: Imaging protocol: XR of the chest. Views: 1 view. COMPARISON: CR (CHEST, ) 04/03/2021 8:38 PM FINDINGS: Tubes, catheters and devices: Right-sided central venous catheter and endotracheal tube are in good position. NG tube side port is at the GE junction and should be advanced 5 cm. Lungs: Stable bilateral infiltrates. Pleural spaces: Unremarkable. No pleural effusion. No pneumothorax. Heart/Mediastinum: Unremarkable. No cardiomegaly. Bones/joints: Unremarkable. XR/XR chest 1V portable [id number] IMPRESSION: 1. NG tube side port is at the GE junction and should be advanced 5 cm. 2. Stable bilateral infiltrates.
[2021-04-04 08:23] LABS: ABG PCO2 39.8 mmHg (35-45); ABG PH Result 7.33 (7.35-7.45); Arterial Blood Gas Hematocrit 48.6 % (37-47); Base Excess ABG -4.9 mmol/L (-2.0-2.0); Blood Gas Operator Identificat glc; Blood Gas Sample Site Brachial, left; Blood Gas Sample Type Arterial; HCO3 ABG 20.7 mmol/L (22-26); Oxygen Device VENT
[2021-04-04 08:24] LABS: Blood Gas Tidal Volume 0.45
[2021-04-04 08:48] LABS: Partial Thromboplastin Time 113.7 SECONDS (23.9-36.7)
--- NOTE | 2021-04-04 12:08 | P.PN_ITS ---
Subjective Subjective: Interval history: Karyn was sedated on the ventilator when I saw her this morning. Norepinephrine was added in the night for hypotension. Medications: Reviewed: Yes Vitals/I&O/Wt Last Vital Signs Temp 98.2 F 04/03/21 16:00 Pulse 70 04/04/21 12:06 Resp 18 04/04/21 12:06 BP 84/58 04/04/21 12:06 Pulse Ox 95 04/04/21 12:06 04/03/21 04/04/21 04/04/21 22:59 06:59 14:59 Intake Total 1069.276 / 1169.276 58.610 / 1227.886 270.51 / 270.51 Output Total 400 / 400 Balance 669.276 / 769.276 58.610 / 827.886 270.51 / 270.51 Weight last 48 hrs Weight 76.657 kg Physical Exam Narrative: EXAM NARRATIVE: General exam sedated on the ventilator, but opens eyes briefly HEENT: Atraumatic and normocephalic. Pupils equally round. Oropharyngeal tube and endotracheal tube noted. 7-1/2 endotracheal tube. Central line noted right IJ Neck is supple no lymphadenopathy or thyromegaly Cardiovascular regular rate and rhythm without murmur Lungs clear Abdomen is soft with positive bowel sounds. No obvious organomegaly. Pierre noted, urine in bag Extremities no cyanosis clubbing or edema, cap refill brisk Urinary Catheter Management^: Pierre: Cath Placed During This Visit: yes Reason for Continuing Indwelling Catheter: Accurate Measurement of Urinary Output in Critically Ill Patients Urinary Catheter Date of Insertion: 04/03/21 Urinary Catheter Time of Insertion: 16:18 Data : 04/03/21 09:20 04/03/21 09:20 Micro: Microbiology 04/03/21 10:30 Blood Culture - Preliminary Blood NEGATIVE TO DATE 04/03/21 10:00 Blood Culture - Preliminary Blood NEGATIVE TO DATE 04/03/21 10:50 Gram Stain - Final Sputum - Expectorated Sputum Sputum Culture - Preliminary A&P Assessment and plan (1) Acute respiratory failure with hypoxia: Intubated and sedated in the emergency department Continue Versed and fentanyl currently MRSA PCR pending Procalcitonin level negative. Tocilizumab given April 03 Continue remdesivir Continue dexamethasone Wean oxygen as tolerated Empiric Zosyn Secondary to elevated BNP, right pleural effusion, tenuous respiratory status will give 20 mg of Lasix IV x1. Could consider echo in the near future Status: Acute (2) Pneumonia due to COVID-19 virus: See notations above Status: Acute (3) Pulmonary emboli: Heparin per weight-based protocol Status: Acute (4) Elevated CK: Repeat tomorrow Not candidate for large amounts of fluids secondary to COVID-19 pneumonia/ARDS Status: Acute Additional A&P Information Hypotension. Currently receiving norepinephrine. Currently at 6 mcg Full code Heparin will suffice for DVT prophylaxis It is my understanding the emergency department has arranged transfer to an outside facility with an ICU bed. Still awaiting laboratory ordered this morning. Attestations Medical Necessity Statement*: Needs continued hospital stay for COVID-19 pneumonia requiring endotracheal admission. Unfortunately no ICU is available here and patient is going to transfer. She has been able to be weaned down from her initial FiO2 to 50% Critical Care Time: The high probability of a clinically significant, sudden or life threatening deterioration of the patient's [pulm] system(s) required my full and direct attention, intervention and personal management. The critical care time is as shown. 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
[2021-04-04] MEDS: dexamethasone 10 mg/mL INJ 6 MG IVP (12:13)
--- NOTE | 2021-04-04 16:35 | P.TS_ITS ---
Transfer Summary Providers Date of Admission: 04/03/21 19:32 Date of Discharge: 04/04/21 Attending Provider at Admission: Giovani Schulz MD Attending Provider at Transfer: Giovani Schulz MD Primary Care Provider: Mik Vo DO Anticipated Date of Transfer: Anticipated date of transfer: 04/04/21 Receiving Facility & Provider: Receiving Provider: [Dr. Barney] Receiving facility: [facility]] Diagnoses at Discharge Discharge Diagnosis (1) Acute respiratory failure with hypoxia: Status: Acute (2) Pneumonia due to COVID-19 virus: Status: Acute (3) Pulmonary emboli: Status: Acute (4) Elevated CK: Status: Acute Reason for Visit Reason for Visit: SOB/ N/V/ WEAKNESS Hospital Course Hospital Course Karyn is a 55-year-old female that presented to the hospital with significant shortness of breath and had a positive Covid test on March 31 with symptoms dating back to March 27. She was intubated when I first evaluated her. She was placed on empiric Zosyn. Remdesivir and dexamethasone were initiated. Procalcitonin level was negative and no concern for bacterial infection was noted so Tocilizumab was given. 1 dose of Lasix was given secondary to a small right pleural effusion, elevated BNP. Versed and fentanyl were initiated for sedation on the ventilator. Pulmonary emboli were noted on CTA, and although the patient initially got a dose of Lovenox that was therapeutic this was converted to a heparin drip at next dosing interval. The night after my evaluation she required some norepinephrine for hypotension. As no beds were available the next day as well attempts were made to transfer the patient out again, and a bed was found in [facility]. The patient was stable at the time of transfer on an FiO2 of 80% and a minimal dose of pressor. She was transferred through the emergency department physician to Dr. Barney at [facility]. Physical Exam Narrative: EXAM NARRATIVE: See examined progress note Urinary Catheter Management^: Pierre: Cath Placed During This Visit: yes Reason for Continuing Indwelling Catheter: Accurate Measurement of Urinary Output in Critically Ill Patients Urinary Catheter Date of Insertion: 04/03/21 Urinary Catheter Time of Insertion: 16:18 TS Data Data Completed and Pending: Completed Studies During Hospitalization Category Date Time Status CT angio chest PE protcl [id number] Stat Cat Scan 04/03/21 10:46 Completed XR chest 1V velvet ble [id number] Routine Exams 04/03/21 20:07 Completed XR chest 1V velvet ble [id number] Routine Exams 04/04/21 07:00 Completed XR chest 1V velvet ble [id number] Stat Exams 04/03/21 09:27 Completed XR chest 1V velvet ble [id number] Stat Exams 04/03/21 15:07 Completed XR chest 1V velvet ble [id number] Urgent Exams 04/03/21 20:18 Completed Pending at discharge Category Date Time Status Blood Culture Sta t Lab 04/03/21 10:30 Results Sputum Culture an d Gram Stain Stat Lab 04/03/21 10:50 Results Labs from last 24 hours 04/04/21 04/04/21 04/04/21 12:33 12:33 12:33 WBC Cancelled Corrected WBC Cancelled RBC Cancelled Hgb Cancelled Hct Cancelled MCV Cancelled MCH Cancelled MCHC Cancelled RDW Cancelled Plt Count Cancelled MPV Cancelled Gran % Cancelled Neut % (Auto) Cancelled Lymph % (Auto) Cancelled [place] % (Auto) Cancelled Eos % (Auto) Cancelled Baso % (Auto) Cancelled Neut # (Auto) Cancelled Lymph # (Auto) Cancelled [place] # (Auto) Cancelled Eos # (Auto) Cancelled Baso # (Auto) Cancelled Absolute Gran (aut o) Cancelled Nucleated RBC % (a uto) Cancelled Nucleated RBCs # Cancelled APTT Specimen Type Sample Site ABG pH ABG pCO2 ABG pO2 ABG HCO3 ABG O2 Saturation ABG Base Excess Lavelle Test A-a O2 Gradient Hematocrit Hgb O2 Saturation Carboxyhemoglobin Methemoglobin Total Hemoglobin Sodium Cancelled Potassium Cancelled Glucose Cancelled Ionized Calcium O2 Delivery Device FiO2 Tidal Volume PEEP Engineer Rf Deployment ID Chloride Cancelled Carbon Dioxide Cancelled Anion Gap Cancelled BUN Cancelled Creatinine Cancelled GFR Calculation Cancelled Calculated Osmolal ity Cancelled Calcium Cancelled Total Bilirubin Cancelled AST Cancelled ALT Cancelled Alkaline Phosphata se Cancelled Creatine Kinase Cancelled Cancelled Total Protein Cancelled Albumin Cancelled Globulin Cancelled 04/04/21 04/04/21 04/04/21 08:15 08:00 01:10 WBC Corrected WBC RBC Hgb Hct MCV MCH MCHC RDW Plt Count MPV Gran % Neut % (Auto) Lymph % (Auto) [place] % (Auto) Eos % (Auto) Baso % (Auto) Neut # (Auto) Lymph # (Auto) [place] # (Auto) Eos # (Auto) Baso # (Auto) Absolute Gran (aut o) Nucleated RBC % (a uto) Nucleated RBCs # APTT 113.7 H Specimen Type Arterial Sample Site Brachial, left ABG pH 7.33 L ABG pCO2 39.8 ABG pO2 144.0 H ABG HCO3 20.7 L ABG O2 Saturation ABG Base Excess -4.9 L Lavelle Test N/a A-a O2 Gradient Hematocrit 48.6 H Hgb O2 Saturation Carboxyhemoglobin Methemoglobin Total Hemoglobin Sodium Potassium Glucose Ionized Calcium O2 Delivery Device Vent FiO2 80.0 Tidal Volume 0.45 PEEP 10.0 Engineer Rf Deployment ID [email or web address] Chloride Carbon Dioxide Anion Gap BUN Creatinine GFR Calculation Calculated Osmolal ity Calcium Total Bilirubin AST ALT Alkaline Phosphata se Creatine Kinase Total Protein Albumin Globulin 04/03/21 04/03/21 21:30 16:33 WBC Corrected WBC RBC Hgb Hct MCV MCH MCHC RDW Plt Count MPV Gran % Neut % (Auto) Lymph % (Auto) [place] % (Auto) Eos % (Auto) Baso % (Auto) Neut # (Auto) Lymph # (Auto) [place] # (Auto) Eos # (Auto) Baso # (Auto) Absolute Gran (aut o) Nucleated RBC % (a uto) Nucleated RBCs # APTT Specimen Type Arterial Arterial Sample Site Radial, right Radial, left ABG pH 7.33 L 7.23 L ABG pCO2 37.6 50.6 H ABG pO2 116.0 H 174.0 H ABG HCO3 19.7 L 21.3 L ABG O2 Saturation 98.4 ABG Base Excess -5.8 L -6.8 L Lavelle Test Pos Pos A-a O2 Gradient 52.6 H Hematocrit 39.3 50.0 H Hgb O2 Saturation 97.3 Carboxyhemoglobin 0.3 L Methemoglobin 0.8 Total Hemoglobin 12.8 Sodium 143.0 Potassium 5.1 H Glucose 252.0 H Ionized Calcium 1.0 L O2 Delivery Device Vent Vent FiO2 80.0 100.0 Tidal Volume 0.45 0.43 PEEP 10.0 10.0 Engineer Rf Deployment ID [email or web address] Amh Chloride Carbon Dioxide Anion Gap BUN Creatinine GFR Calculation Calculated Osmolal ity Calcium Total Bilirubin AST ALT Alkaline Phosphata se Creatine Kinase Total Protein Albumin Globulin Vitals: Last Vital Signs Temp 98.2 F 04/03/21 16:00 Pulse 70 04/04/21 13:30 Resp 18 04/04/21 13:30 BP 84/58 04/04/21 13:30 Pulse Ox 95 04/04/21 13:30 TS Medications Medications Home Medications montelukast 10 mg tablet 10 mg PO QAM 06/21/20 [History Confirmed 04/03/21] omeprazole 20 mg capsule,delayed release 20 mg PO DAILY PRN 06/21/20 [History Confirmed 04/03/21] cefdinir 300 mg capsule 300 mg PO BID #20 cap 03/27/21 [Rx Confirmed 04/03/21] chlorpheniramine 4 mg-phenylephrine 10 mg-DM 15 mg/5 mL oral liquid 5 ml PO Q6H PRN #160 ml 03/27/21 [Rx Confirmed 04/03/21] aspirin 325 mg PO PRN 04/03/21 [History Confirmed 04/03/21] azelastine 2 spray INTRANASAL PRN 04/03/21 [History Confirmed 04/03/21] [id number]-BU-YV-acetaminophen [Cold Max Day-Night] See Rx Instructions .ROUTE .COMPLEX 04/03/21 [History Confirmed 04/03/21] diphenhydramine HCl [Benadryl] 25 mg PO PRN 04/03/21 [History Confirmed 04/03/21] fluticasone propionate [Flonase] 2 spray INTRANASAL PRN 04/03/21 [History Confirmed 04/03/21] ketoconazole 1 applic TOPICAL PRN 04/03/21 [History Confirmed 04/03/21] levothyroxine 50 mcg PO QAM 04/03/21 [History Confirmed 04/03/21] mupirocin 1 applic TOPICAL PRN 04/03/21 [History Confirmed 04/03/21] Discharge Plan Discharge Patient Disposition: Xfer Short-Term Hosp Prescriptions: No Action cefdinir 300 mg capsule 300 mg PO BID Qty: 20 RF: 0 Ed A-Hist DM 4-10-15 mg/5 mL liquid 5 ml PO Q6H PRN (Reason: cold symptoms) Qty: 160 RF: 0 omeprazole 20 mg capsule,delayed release(DR/EC) 20 mg PO DAILY PRN (Reason: Acid Reflux) RF: 0 montelukast 10 mg tablet 10 mg PO QAM RF: 0 aspirin 325 mg Tablet 325 mg PO PRN RF: 0 levothyroxine 50 mcg tablet 50 mcg PO QAM RF: 0 Benadryl 25 mg Capsule 25 mg PO PRN RF: 0 mupirocin 2 % ointment 1 applic TOPICAL PRN RF: 0 azelastine 137 mcg (0.1 %) aerosol,spray 2 spray INTRANASAL PRN RF: 0 ketoconazole 2 % cream 1 applic TOPICAL PRN RF: 0 Flonase 50 mcg/actuation [place],Suspension 2 spray INTRANASAL PRN RF: 0 Cold Max Day-Night 2-5-10-325 mg Tablets, Sequential See Rx Instructions .ROUTE .COMPLEX RF: 0 Discharge Orders: Transfer Out of Facility (Order); Ordered 04/04/21 Ordered By: Giovani Schulz Transfer Attestations Time Spent in Transfer Care*: greater than 30 min Quality Metrics Clinical Quality Measures: During this hospital stay, did patient experience: VTE Contraindication to Overlap Therapy: Overlap treatment not indicated VTE Discharge Education: Education about anticoagulant therapy/Care Notes given Deep Vein Thrombosis/Pulmonary Embolism Present on Admission: Yes Coding Level of Care Code Acute Painter Mirror for [facility] Fwd Diagnoses Acute respiratory failure with hypoxia J96.01 Pneumonia due to COVID-19 virus U07.1; J12.82 Pulmonary emboli I26.99 Elevated CK R74.8
== END 2021-04-04 13:30 | disposition home or self-care (01) | DRG 208 ==
LOC: ER 09:39 → ER IP 04-04 06:59
PROVIDERS: Student in an Organized Health Care Education/Training Program; Admitting Provider Internal Medicine; Emergency Provider Family Medicine; PCP Internal Medicine; Visit Provider Internal Medicine
DX: U07.1 COVID-19 (principal); J96.01 Acute respiratory failure with hypoxia; J12.82 Pneumonia due to coronavirus disease 2019; I26.99 Other pulmonary embolism without acute cor pulmonale; I10 Essential (primary) hypertension; M19.90 Unspecified osteoarthritis, unspecified site; K21.9 Gastro-esophageal reflux disease without esophagitis; E03.9 Hypothyroidism, unspecified; R46.81 Obsessive-compulsive behavior; E66.9 Obesity, unspecified; Z68.29 Body mass index [BMI] 29.0-29.9, adult; R74.8 Abnormal levels of other serum enzymes; E87.5 Hyperkalemia; Z98.890 Other specified postprocedural states; Z86.59 Personal history of other mental and behavioral disorders; Z79.890 Hormone replacement therapy; Z88.8 Allergy status to other drugs, medicaments and biological substances; Z79.82 Long term (current) use of aspirin; Z83.3 Family history of diabetes mellitus; Z53.29 Procedure and treatment not carried out because of patient's decision for other reasons
CPT/HCPCS: 31500; 36415; 36600; 51702; 71045; 71275; 80051; 80053; 82330; 82550; 82803; 82805; 83605; 83880; 84145; 85025; 85378; 85730; 86140; 87040; 87070; 87205; 87641; 94002; 94003; 94799; 96365; 96366; 96367; 96372; 96375; 99291; 99292; C1751; J1100; J1644; J1650; J1940; J2250; J2543; J2704; J3010; J3262; J3490; J7030; Q9967

== ENCOUNTER → 2021-07-11 09:18 | Outpatient (BNVA) | payer MEDICARE, MEDICAID, SELFPAY | PROVIDERS: PCP Internal Medicine; Visit Provider Psychiatry & Neurology Psychiatry | DX: F32.A Depression, unspecified (principal); F41.9 Anxiety disorder, unspecified; F79 Unspecified intellectual disabilities | CPT/HCPCS: 90792 ==

== ENCOUNTER 2021-07-27 17:01 | Emergency (ER) | payer MEDICARE, MEDICAID, SELFPAY ==
[2021-07-27 17:17] VITALS: BP 164/102; PULSE 82; RESP 19; TEMP 37.3; O2SAT 99; BMI 26.6
[2021-07-27 17:24] VITALS: BP 150/82; PULSE 105; RESP 20; O2SAT 97
[2021-07-27] MEDS: oxymetazoline 0.05% Nasal Spray 15 mL 2 SPRAY NOSTRIL-B (17:46)
--- NOTE | 2021-07-27 17:47 | ED_ITS ---
HPI - General Adult General: Chief complaint: General Medical Stated complaint: NOSEBLEED/ ANXIETY Time Seen by Provider: 07/27/21 17:20 History of Present Illness: HPI narrative: Patient is a 56-year-old female comes to the ED via EMS with nose bleeding. Patient says around 3 PM today is when the bleeding started. She says she was picking at a sore on her nose and then it started bleeding after that. Patient is currently on apixaban and takes 5 mg twice a day. Denies any head or facial trauma to cause nosebleed. She admits to being very worried and anxious about this nosebleed. Associated symptoms: Deny chest pain, dyspnea, headache(s), nausea, rash, palpitations or vomiting Review of Systems Const: Denies: fever(s), chills or fatigue Eyes: Denies: change in vision or eye discomfort ENMT: Reports: epistaxis; Denies: throat pain, odynophagia, nasal discharge or nasal congestion Card: Denies: chest pain, palpitations, edema, swelling of feet/ankles, dyspnea on exertion or orthopnea Resp: Denies: dyspnea, productive cough or non-productive cough GI: Denies: abdominal pain, nausea, vomiting, diarrhea, constipation or hematochezia : Denies: flank pain, dysuria or hematuria Musc: Denies: neck pain, back pain or extremity swelling Skin/Breast: Denies: rash or new lesions Neuro: Denies: headache(s), numbness in extremities or weakness in extremities Psych: Reports: anxiety PFS ED PFSH: Medical History Affective personality disorder Anxiety Anxiety state Arthritis Dependent personality disorder Depression Depression GERD (gastroesophageal reflux disease) History of dysthymic disorder Hypothyroidism IBS (irritable bowel syndrome) Intellectual disability Obsessive compulsive disorder Onychomycosis of toenail Psychiatric care Surgical History Hx of bladder repair surgery Family History Family/Other Diabetes Other Affective personality disorder Denies family history of CAD (coronary artery disease) Clotting disorder Dementia Hyperlipidemia Psychiatric illness Chronic kidney disease (CKD) Suicide Anesthesia complication Bleeding disorder Family history of premature coronary artery disease Lung disease Cancer Hypertension Stroke Social History Smoking and tobacco status: never smoked Alcohol intake: never Current occupational status: disabled Physical Exam Const: COMMON NORMALS: no acute distress, patient oriented x3, healthy appearing and alert GENERAL APPEARANCE: cooperative, comfortable and anxious HENMT: COMMON NORMALS: normocephalic HEAD & SCALP: normocephalic NOSE: Normal septum present (No septal hematoma seen.) and Epistaxis present on the right (No active bleeding seen.) anterior source and clots present; no active bleeding MOUTH: Normal oral and palatal mucosa present THROAT: posterior oropharynx normal and uvula midline Neck/C-Spine: COMMON NORMALS: supple GENERAL: Yes normal visual inspection Resp: COMMON NORMALS: normal respiratory effort, No retractions, No use of accessory muscles and clear to auscultation bilaterally AUSCULTATION: clear to auscultation bilaterally Cardio: COMMON NORMALS: regular rate, regular rhythm, S1 normal heart sound present, S2 normal heart sound present, No gallops present (Cardio), No clicks present (Cardio), No murmurs present (Cardio) and Peripheral pulses 2+ throughout RATE: regular rate RHYTHM: regular rhythm HEART SOUNDS: S1 normal heart sound present and S2 normal heart sound present PERIPHERAL PULSES: Peripheral pulses 2+ throughout GI: COMMON NORMALS: Normal to inspection, nondistended, normoactive bowel sounds present, Soft to palpation, non-tender and no masses PALPATION: Yes Soft to palpation : COMMON NORMALS: Yes no CVA tenderness BLADDER/KIDNEY EXAM: Yes no CVA tenderness Back/Pelvis: COMMON NORMALS: no CVA tenderness Extremity: COMMON NORMALS: normal to inspection Neuro: COMMON NORMALS: patient oriented x3 and moves all extremities SENSORIUM/ORIENTATION: Yes alert Skin: GENERAL SKIN EXAM: dry skin Course Vital Signs: Vital signs: Vital Signs Temperature 99.2 F 07/27/21 17:17 Pulse Rate 116 H 07/27/21 20:07 Respiratory Rate 22 H 07/27/21 20:07 Blood Pressure 152/88 07/27/21 20:07 Pulse Oximetry 98 07/27/21 20:07 MDM - General Adult MDM Narrative: Medical decision making narrative: Patient is a 56-year-old female comes to the ED with a nosebleed. Denies any acute head trauma or injury to cause bleed. Patient says she was picking at her nose because the bleed. Nosebleed was controlled after using some Afrin and nasal clamp. Patient was discharged home with nasal clamp and instructed on how to manage any reoccurring bleeds and told to come back to the ED if needed for any uncontrolled nosebleeds. Follow-up with PCP in 7 to 10 days for reevaluation. Patient understood and agreed with plan. Discharge Plan Discharge Patient Disposition: Home Clinical Impression: Epistaxis Condition: Stable Prescriptions: No Action omeprazole 20 mg capsule,delayed release(DR/EC) 20 mg PO DAILY RF: 0 Eliquis 5 mg tablet 5 mg PO BID RF: 0 sennosides-docusate sodium [Lax Stool Softener With Senna] 8.6-50 mg tablet 1 tab-cap PO DAILY RF: 0 diltiazem HCl 30 mg tablet 30 mg PO DAILY RF: 0 melatonin 5 mg capsule 15 mg PO .at bed RF: 0 trazodone 50 mg tablet 50 mg PO DAILY 30 Days Qty: 30 RF: 3 levothyroxine 50 mcg tablet 50 mcg PO QAM RF: 0 ketoconazole 2 % cream 1 applic TOPICAL PRN RF: 0 Discharge Orders: Discharge ED (Routine); Ordered 07/27/21 Ordered By: Vitaliy Gifford Referrals: Mik Vo DO [Primary Care Provider] - Discharge Diet: Regular Discharge Activity: Resume usual activity Patient Instructions: Nosebleed (ED) Activity Restrictions/Additional Instructions: Follow-up with medical provider as directed in 5 to 7 days reevaluation. If you have a reoccurring nosebleed you can use the Afrin nasal spray and then use nasal clamp and leave it on for 15 to 20 minutes. Remove clamp and reassess bleeding. Try reclamping nose for 2 more rounds of 15 to 20 minutes. If unable to stop nosebleed return to the ED. Continue taking medications as prescribed. Return to the ER or your medical provider if condition worsens. Please read and understand discharge instructions. Thank you for choosing [facility] for your healthcare needs today. Please realize this is an emergency room and that we are providing you with a medical screening exam and this may not be complete and all inclusive of all the testing and or work up that you may need to determine your ailment or severity of your illness. It is very important that you follow up as instructed or that you return to the Emergency Department should you have concerns or if your condition changes or worsens in any way. Coding Level of Care Code ED Fur Drummer for Hannah Fwalvaro Exam Comprehensive
[2021-07-27 20:07] VITALS: BP 152/88; PULSE 116; RESP 22; O2SAT 98
== END 2021-07-27 20:40 | disposition home or self-care (01) ==
PROVIDERS: Emergency Provider Physician Assistant; PCP Internal Medicine
DX: R04.0 Epistaxis (principal); Z79.01 Long term (current) use of anticoagulants
CPT/HCPCS: 99283

== ENCOUNTER → 2021-09-12 08:37 | Outpatient (BNVA) | payer MEDICARE, MEDICAID, SELFPAY | PROVIDERS: PCP Internal Medicine; Visit Provider Psychiatry & Neurology Psychiatry | DX: F41.9 Anxiety disorder, unspecified (principal); F32.A Depression, unspecified; F41.0 Panic disorder [episodic paroxysmal anxiety]; F79 Unspecified intellectual disabilities | CPT/HCPCS: 99214 ==

== ENCOUNTER 2021-09-23 13:22 | Emergency (ER) | payer MEDICARE, MEDICAID, SELFPAY ==
[2021-09-23 14:03] VITALS: BP 162/97; PULSE 82; RESP 16; TEMP 36.9; O2SAT 94
--- NOTE | 2021-09-23 15:38 | ED.C_ITS ---
Documented by User: JULIETTE Perez 09/23/21 16:31 HPI - Psych General: Chief Complaint: Psychiatric Symptoms Stated Complaint: MHA Time Seen by Provider: 09/23/21 15:15 History of Present Illness: Patient states she has been having memory problems since she had Covid back in March. She said her memory is worsened said she is also had anxiety. And not been taking her alprazolam regularly. Denies any other problems presently, patient is not suicidal or homicidal. Has history of chronic constipation MD complaint: other (Chronic anxiety and memory issues) Onset (ago): month(s) Associated symptoms: Deny depression, homicidal ideation or suicidal ideation Review of Systems Const: Denies: fever(s), chills or body aches Eyes: Denies: eye discomfort ENMT: Denies: throat pain Card: Reports: dyspnea on exertion; Denies: chest pain Resp: Denies: dyspnea GI: Reports: nausea and vomiting; Denies: abdominal pain Skin/Breast: Reports: other (Recent dermatological procedures on face); Denies: rash Neuro: Denies: headache(s) Psych: Reports: anxiety, panic attacks and memory loss; Denies: depression, suicidal ideation or homicidal ideation PFSH ED PFSH: Medical History (Updated 09/23/21 @ 15:32 by JULIETTE Perez) Affective personality disorder Anxiety Anxiety state Arthritis Dependent personality disorder Depression Depression GERD (gastroesophageal reflux disease) History of dysthymic disorder Hypothyroidism IBS (irritable bowel syndrome) Intellectual disability Obsessive compulsive disorder Onychomycosis of toenail Panic attacks Psychiatric care Surgical History Hx of bladder repair surgery Family History Family/Other Diabetes Other Affective personality disorder Denies family history of CAD (coronary artery disease) Clotting disorder Dementia Hyperlipidemia Psychiatric illness Chronic kidney disease (CKD) Suicide Anesthesia complication Bleeding disorder Family history of premature coronary artery disease Lung disease Cancer Hypertension Stroke Social History Smoking and tobacco status: never smoked Alcohol intake: never Current occupational status: disabled Physical Exam Const: COMMON NORMALS: no acute distress, patient oriented x3 and alert HENMT: COMMON NORMALS: normocephalic HEAD & SCALP: normocephalic Eye: COMMON NORMALS: EOMs intact bilaterally Neck/C-Spine: COMMON NORMALS: no JVD Resp: COMMON NORMALS: normal respiratory effort and No use of accessory muscles Cardio: COMMON NORMALS: no JVD GI: INSPECTION: Yes normal to inspection Extremity: COMMON NORMALS: normal to inspection and full ROM Neuro: COMMON NORMALS: patient oriented x3 SENSORIUM/ORIENTATION: Yes alert Psych: COMMON NORMALS: mental status grossly normal, Normal thought process present and speech normal APPEARANCE: Yes grossly normal ATTITUDE: Yes calm and Yes engaged ACTIVITY/MOTOR BEHAVIOR: Yes appropriate eye contact SPEECH: Yes normal speech MOOD & AFFECT: Yes anxious THOUGHT PROCESS: Normal thought process present OTHER: Patient does not appear to have any neurological deficits. Patient does have some short-term memory deficits. Patient answers all questions appropriately. Patient is anxious but does not appear any harm to herself or anybody else. Skin: COMMON NORMALS: no rashes or lesions noted GENERAL SKIN EXAM: no rashes or lesions noted Course Vital Signs: Vital signs: Vital Signs Temperature 98.5 F 09/23/21 14:03 Pulse Rate 82 09/23/21 14:03 Respiratory Rate 16 09/23/21 14:03 Blood Pressure 162/97 09/23/21 14:03 Pulse Oximetry 94 09/23/21 14:03 [facility] - Psych Medical Decision Making Patient does have some anxiety chronic in nature and also she says that she has had worsening of her problems since she had Covid back in March. Patient not homicidal or suicidal. Patient answers my questions appropriately. Patient will be discharged home with follow-up with behavioral health care and are primary. I did discuss patient's care and presenting signs symptoms and follow-up with the power of assistant attorney general that was here with her. Her assistant attorney general said that she will take her home and definitely take follow-up with Behavioral Health Care appointment. P power of said they have been working for months to address his issues who presented with today. There has been no change in her status today. Patient basically has been a challenge the last few months for caregiver. Discharge Plan Discharge Patient Disposition: Home Clinical Impression: Post-COVID chronic anxiety Condition: Stable Prescriptions: No Action omeprazole 20 mg capsule,delayed release(DR/EC) 20 mg PO DAILY 0RF Eliquis 5 mg tablet 5 mg PO BID 0RF sennosides-docusate sodium [Lax Stool Softener With Senna] 8.6-50 mg tablet 1 tab-cap PO DAILY 0RF diltiazem HCl 30 mg tablet 30 mg PO DAILY 0RF melatonin 5 mg capsule 15 mg PO .at bed 0RF alprazolam 0.25 mg tablet 0.25 mg PO BID PRN (Reason: anxiety or sleep) 30 Days Qty: 60 3RF trazodone 50 mg tablet 50 mg PO DAILY 30 Days Qty: 30 3RF Rx Instructions: pt may take a-whole or a-half tab po HS levothyroxine 50 mcg tablet 50 mcg PO QAM 0RF ketoconazole 2 % cream 1 applic TOPICAL PRN 0RF Discharge Orders: Discharge ED (Routine); Ordered 09/23/21 Ordered By: Chad Mondragon Referrals: Mik Vo DO [Primary Care Provider] - Discharge Diet: Usual diet Discharge Activity: Resume usual activity Patient Instructions: Anxiety (ED) Activity Restrictions/Additional Instructions: Continue your present medications. Follow-up with your behavioral health care service provider. Take your Xanax 3 times a day as needed for anxiety panic attacks. Coding Level of Care Code ED [employer] Route Aide for Chg Fwd Exam Comprehensive Documented by User: Corbin Curry MD 09/24/21 19:10 HPI - Psych General: Chief Complaint: Psychiatric Symptoms Stated Complaint: MHA Time Seen by Provider: 09/23/21 15:15 PFS ED PFSH: Medical History (Updated 09/23/21 @ 15:32 by JULIETTE Perez) Affective personality disorder Anxiety Anxiety state Arthritis Dependent personality disorder Depression Depression GERD (gastroesophageal reflux disease) History of dysthymic disorder Hypothyroidism IBS (irritable bowel syndrome) Intellectual disability Obsessive compulsive disorder Onychomycosis of toenail Panic attacks Psychiatric care Surgical History Hx of bladder repair surgery Family History Family/Other Diabetes Other Affective personality disorder Denies family history of CAD (coronary artery disease) Clotting disorder Dementia Hyperlipidemia Psychiatric illness Chronic kidney disease (CKD) Suicide Anesthesia complication Bleeding disorder Family history of premature coronary artery disease Lung disease Cancer Hypertension Stroke Social History Smoking and tobacco status: never smoked Alcohol intake: never Current occupational status: disabled Course Vital Signs: Vital signs: Vital Signs Temperature 98.5 F 09/23/21 14:03 Pulse Rate 82 09/23/21 14:03 Respiratory Rate 16 09/23/21 14:03 Blood Pressure 162/97 09/23/21 14:03 Pulse Oximetry 94 09/23/21 14:03 [facility] - Psych Medical Decision Making Patient does have some anxiety chronic in nature and also she says that she has had worsening of her problems since she had Covid back in March. Patient not homicidal or suicidal. Patient answers my questions appropriately. Patient will be discharged home with follow-up with behavioral health care and are primary. I did discuss patient's care and presenting signs symptoms and follow-up with the power of assistant attorney general that was here with her. Her assistant attorney general said that she will take her home and definitely take follow-up with Behavioral Health Care appointment. P power of said they have been working for months to address his issues who presented with today. There has been no change in her status today. Patient basically has been a challenge the last few months for caregiver. I have reviewed this documentation by Chad Mondragon NP. Corbin Curry MD Emergency Medicine Discharge Plan Discharge Patient Disposition: Home Clinical Impression: Post-COVID chronic anxiety Condition: Stable Prescriptions: No Action omeprazole 20 mg capsule,delayed release(DR/EC) 20 mg PO DAILY 0RF Eliquis 5 mg tablet 5 mg PO BID 0RF sennosides-docusate sodium [Lax Stool Softener With Senna] 8.6-50 mg tablet 1 tab-cap PO DAILY 0RF diltiazem HCl 30 mg tablet 30 mg PO DAILY 0RF melatonin 5 mg capsule 15 mg PO .at bed 0RF alprazolam 0.25 mg tablet 0.25 mg PO BID PRN (Reason: anxiety or sleep) 30 Days Qty: 60 3RF trazodone 50 mg tablet 50 mg PO DAILY 30 Days Qty: 30 3RF Rx Instructions: pt may take a-whole or a-half tab po HS levothyroxine 50 mcg tablet 50 mcg PO QAM 0RF ketoconazole 2 % cream 1 applic TOPICAL PRN 0RF Discharge Orders: Discharge ED (Routine); Ordered 09/23/21 Ordered By: Chad Mondragon Referrals: Mik Vo DO [Primary Care Provider] - Discharge Diet: Usual diet Discharge Activity: Resume usual activity Patient Instructions: Anxiety (ED) Activity Restrictions/Additional Instructions: Continue your present medications. Follow-up with your behavioral health care service provider. Take your Xanax 3 times a day as needed for anxiety panic attacks. Coding Level of Care Code ED [employer] Route Aide for Hannah Fwd Exam Comprehensive
== END 2021-09-23 15:51 | disposition home or self-care (01) ==
PROVIDERS: Emergency Provider Nurse Practitioner Family; PCP Internal Medicine
DX: F41.8 Other specified anxiety disorders (principal); U09.9 Post COVID-19 condition, unspecified; Z79.01 Long term (current) use of anticoagulants
CPT/HCPCS: 99281

== ENCOUNTER 2021-11-09 10:00 | Inpatient (IN) | payer MEDICARE, MEDICAID, SELFPAY ==
[2021-11-09 10:02] VITALS: BP 148/81; PULSE 90; RESP 15; TEMP 36.7; O2SAT 95; BMI 25.7
--- NOTE | 2021-11-09 10:33 | CT_ITS ---
WS: [id number] CT abdomen pelvis w con* [id number] REASON FOR EXAM: abdominal pain with vomiting IV CONTRAST ADMINISTERED: 95 mL of Omnipaque 300 TOTAL EXAM DLP: 1228.[address] scans at [facility] use at least one of these dose optimization techniques: automat ed exposure control; mA and/or kV adjustment per patient size (includes targeted exams where dose is matched to clinical indication); or iterative reconstruction. FINDINGS: The liver, spleen, and pancreas are unremarkable. Gallbladder has been surgically removed. Adrenals and kidneys are within normal limits. No free fluid or focal fluid collection. No free air. There are multiple significantly dilated gas-filled loops of small bowel. There is a ventral hernia o pening that contains dilated small bowel. Bowel exiting this region appears to be a more normal calib er and fluid-filled. The colon is extremely redundant. The right colon is postoperative and is fluid-filled. PELVIS: Dilated loops of small bowel within the pelvis. Small amount of free fluid. No focal fluid collection. No mass or adenopathy. No focal bony abnormality of the lumbar spine or pelvis. CT/CT abdomen pelvis w con* [id number] IMPRESSION: Distal small bowel obstruction which may be related to a ventral hernia.
[2021-11-09 11:12] LABS: Basophils # 0.1 10^3/uL (0.0-0.1); Basophils % 0.5 %; Eosinophils # 0.2 10^3/uL (0.0-0.8); Eosinophils % 1.6 %; Hematocrit 42.3 % (37.0-47.0); Hemoglobin 13.4 g/dL (11.5-15.3); Lymphocytes # 1.3 10^3/uL (0.8-4.8); Lymphocytes % 13.4 %; Mean Corpuscular HGB Conc 31.7 g/dL (30.0-36.0); Mean Corpuscular Hemoglobin 30.2 pg (28.0-34.0); Mean Corpuscular Volume 95.3 fl (81-99); Mean Platelet Volume 9.4 fL (7.4-10.4); Monocytes # 0.6 10^3/uL (0.2-0.9); Monocytes % 6.1 %; Neutrophils # 7.81 10^3/uL (1.8-7.7); Neutrophils % 78.1 %; Nucleated Red Blood Cells % 0 %; Platelet Count 330 10^3/cmm (130-400); Red Blood Count 4.44 10^6/uL (4.1-5.3); Red Cell Distribution Width 15.1 % (12.1-15.1)
--- NOTE | 2021-11-09 11:23 | ED_ITS ---
HPI - Nausea/Vomiting/Diarrhea General: Chief complaint: Nausea/Vomiting/Diarrhea Stated complaint: DIARRHEA/ VOMITING Time Seen by Provider: 11/09/21 10:08 History of Present Illness: 56-year-old female presents to the emergency department from correction presents reports nausea and vomiting abdominal pain has been started since last night after eating some questionably bad food the patient reports no fevers no chills however she does appear to be a very poor historian. Patient does report questionable blood in her emesis prior to arrival reports after throwing up she feels much better in which her abdominal pain is almost resolved. Associated nausea: Yes Associated symtoms: Reports nausea; Denies anxiety, change in vision, chest pain, fatigue, headache(s), malaise or palpitations Review of Systems General: Reports: 10 or more systems reviewed and unremarkable except in HPI and below Const: Denies: fever(s), chills, fatigue or malaise Eyes: Denies: change in vision or blurry vision Card: Denies: chest pain or palpitations Resp: Denies: dyspnea or productive cough GI: Reports: abdominal pain, nausea and vomiting : Denies: flank pain Musc: Denies: extremity pain or extremity swelling Skin/Breast: Denies: rash or pruritus Neuro: Denies: headache(s) Psych: Denies: anxiety or depression Chance/Lymph: Denies: easy bleeding All/Imm: Denies: urticaria, throat swelling or facial swelling PFSH ED PFSH: Medical History Affective personality disorder Anxiety Anxiety state Arthritis Dependent personality disorder Depression Depression GERD (gastroesophageal reflux disease) History of dysthymic disorder Hypothyroidism IBS (irritable bowel syndrome) Intellectual disability Obsessive compulsive disorder Onychomycosis of toenail Panic attacks Psychiatric care Surgical History Hx of bladder repair surgery Family History Family/Other Diabetes Other Affective personality disorder Denies family history of CAD (coronary artery disease) Clotting disorder Dementia Hyperlipidemia Psychiatric illness Chronic kidney disease (CKD) Suicide Anesthesia complication Bleeding disorder Family history of premature coronary artery disease Lung disease Cancer Hypertension Stroke Social History Smoking and tobacco status: never smoked Alcohol intake: never Current occupational status: disabled Physical Exam Const: COMMON NORMALS: no acute distress, patient oriented x3 and healthy appearing HENMT: COMMON NORMALS: normocephalic and atraumatic HEAD & SCALP: normocephalic and atraumatic Eye: COMMON NORMALS: Equal, round and reactive pupils present and EOMs intact bilaterally PUPIL: Yes Equal, round and reactive pupils present Neck/C-Spine: COMMON NORMALS: full ROM, supple and no JVD Lymph: LYMPHATIC: no lymphadenopathy noted Chest: COMMONS NORMALS: normal inspection of the chest and normal palpation of entire chest wall Resp: COMMON NORMALS: normal respiratory effort, No retractions and clear to auscultation bilaterally EFFORT & INSPECTION: Yes able to speak in complete sentences and Yes symmetric chest movement AUSCULTATION: clear to auscultation bilaterally Cardio: COMMON NORMALS: no JVD, regular rate and regular rhythm RATE: regular rate RHYTHM: regular rhythm GI: COMMON NORMALS: Normal to inspection, nondistended, normoactive bowel sounds present and Soft to palpation INSPECTION: Yes normal to inspection PALPATION: Yes Soft to palpation OTHER: right upper quadrant Tenderness noted to the abdomen mostly to the epigastric otherwise soft nontender nondistended no guarding rebound noted : COMMON NORMALS: Yes no CVA tenderness BLADDER/KIDNEY EXAM: Yes no CVA tenderness Back/Pelvis: COMMON NORMALS: no CVA tenderness Extremity: COMMON NORMALS: normal to inspection and full ROM Neuro: COMMON NORMALS: patient oriented x3, CN's II-XII intact bilaterally, moves all extremities and no focal motor deficits Psych: COMMON NORMALS: mental status grossly normal, Normal thought process present, cooperative and normal affect THOUGHT PROCESS: Normal thought process present Skin: COMMON NORMALS: no rashes or lesions noted GENERAL SKIN EXAM: no rashes or lesions noted Course Vital Signs: Vital signs: Vital Signs Temperature 98.1 F 11/09/21 10:02 Pulse Rate 83 11/09/21 14:34 Respiratory Rate 18 11/09/21 14:34 Blood Pressure 138/85 11/09/21 14:34 Pulse Oximetry 94 11/09/21 14:34 MDM - Nausea/Vomiting/Diarrhea Medical Decision Making Due to the patient's symptoms and condition lab work and imaging will be obtained we will continue to follow. Notified by nursing staff the patient has been slightly anxious requesting symptoms IV meds will be providing her an alprazolam tablet. Patient was found to have a small bowel obstruction with concerns of underlying ventral hernia that is creating it discussed the patient's case with Dr. Grey on-call surgeon that evaluated the patient recommends admission to medicine NG tube that will be turned off for a oral contrasted CT to help determine more information of this discussed the patient's case with Dr. Kim is agreed except the patient patient made in stable conditio n at this time. Lab Data : 11/09/21 10:50 11/09/21 10:50 Radiology Impressions Abdomen/Pelvis CT 11/09/21 10:33 IMPRESSION: Distal small bowel obstruction which may be related to a ventral hernia. Laboratory Results WBC 10.0 10^3/uL (4.0-10.0) 11/09/21 10:50 RBC 4.44 10^6/uL (4.1-5.3) 11/09/21 10:50 Hgb 13.4 g/dL (11.5-15.3) 11/09/21 10:50 Hct 42.3 % (37.0-47.0) 11/09/21 10:50 MCV 95.3 fl (81-99) 11/09/21 10:50 MCH 30.2 pg (28.0-34.0) 11/09/21 10:50 MCHC 31.7 g/dL (30.0-36.0) 11/09/21 10:50 RDW 15.1 % (12.1-15.1) 11/09/21 10:50 Plt Count 330 10^3/cmm (130-400) 11/09/21 10:50 MPV 9.4 fL (7.4-10.4) 11/09/21 10:50 Neut % (Auto) 78.1 % 11/09/21 10:50 Lymph % (Auto) 13.4 % 11/09/21 10:50 [place] % (Auto) 6.1 % 11/09/21 10:50 Eos % (Auto) 1.6 % 11/09/21 10:50 Baso % (Auto) 0.5 % 11/09/21 10:50 Neut # (Auto) 7.81 10^3/uL (1.8-7.7) H 11/09/21 10:50 Lymph # (Auto) 1.3 10^3/uL (0.8-4.8) 11/09/21 10:50 [place] # (Auto) 0.6 10^3/uL (0.2-0.9) 11/09/21 10:50 Eos # (Auto) 0.2 10^3/uL (0.0-0.8) 11/09/21 10:50 Baso # (Auto) 0.1 10^3/uL (0.0-0.1) 11/09/21 10:50 Nucleated RBC % (auto) 0 % 11/09/21 10:50 Nucleated RBCs # 0.0 /100WBC 11/09/21 10:50 Sodium 138 mmol/L (136-145) 11/09/21 10:50 Potassium 4.7 mmol/L (3.5-5.1) 11/09/21 10:50 Chloride 100 mmol/L (98-107) 11/09/21 10:50 Carbon Dioxide 27 mmol/L (22-29) 11/09/21 10:50 Anion Gap 15.7 (5-19) 11/09/21 10:50 BUN 16 mg/dL (6-20) 11/09/21 10:50 Creatinine 0.9 mg/dL (0.5-0.9) 11/09/21 10:50 GFR Calculation 64.3 mL/min (90-130) L 11/09/21 10:50 Glucose 136 mg/dL (65-115) H 11/09/21 10:50 Calculated Osmolality 289 mOsm/kg (285-295) 11/09/21 10:50 Lactate 2.5 mmol/L (0.5-2.2) H 11/09/21 10:50 Calcium 9.1 mg/dL (8.5-10.5) 11/09/21 10:50 Total Bilirubin 0.3 mg/dL (0.15-1.2) 11/09/21 10:50 AST 15 U/L (0-32) 11/09/21 10:50 ALT 14 U/L (0-33) 11/09/21 10:50 Alkaline Phosphatase 101 IU/L (35-105) 11/09/21 10:50 C-Reactive Protein 3.8 mg/L (0.0-4.9) 11/09/21 10:50 Total Protein 6.6 g/dL (6.6-8.7) 11/09/21 10:50 Albumin 3.9 g/dL (3.5-5.2) 11/09/21 10:50 Globulin 2.7 g/dL (1.3-4.6) 11/09/21 10:50 Lipase 23 U/L (13-60) 11/09/21 10:50 Urine Color Yellow (Yellow) 11/09/21 12:47 Urine Appearance Sl hazy (CLEAR) 11/09/21 12:47 Urine pH 7 (5-7) 11/09/21 12:47 Ur Specific [place] 1.015 (1.005-1.030) 11/09/21 12:47 Urine Protein Neg (Negative) 11/09/21 12:47 Urine Glucose (UA) Norm (Normal) 11/09/21 12:47 Urine Ketones Negative (Negative) 11/09/21 12:47 Urine Blood Neg (Negative) 11/09/21 12:47 Urine Nitrate Negative (Negative) 11/09/21 12:47 Urine Bilirubin Neg (Negative) 11/09/21 12:47 Urine Urobilinogen 1 mg/dL (Negative) H 11/09/21 12:47 Ur Leukocyte Esterase Negative (Negative) 11/09/21 12:47 Urine RBC 0-4 /hpf (0-2) H 11/09/21 12:47 Urine WBC 5-10 /hpf (0-5) H 11/09/21 12:47 Ur Squamous Epith Cells 10-15 /hpf (0-5) H 11/09/21 12:47 Amorphous Sediment Not Reportable 11/09/21 12:47 Urine Bacteria 2+ /hpf (NONE) H 11/09/21 12:47 Discharge Plan Discharge Patient Disposition: Admitted As Inpatient Clinical Impression: Small bowel obstruction, Nausea & vomiting Condition: Stable Coding Level of Care Code 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
[2021-11-09 11:27] LABS: Alanine Aminotransferase 14 U/L (0-33); Albumin Level 3.9 g/dL (3.5-5.2); Alkaline Phosphatase 101 IU/L (35-105); Anion Gap 15.7 (5-19); Aspartate Amino Transferase 15 U/L (0-32); Blood Urea Nitrogen 16 mg/dL (6-20); C Reactive Protein 3.8 mg/L (0.0-4.9); Calcium 9.1 mg/dL (8.5-10.5); Carbon Dioxide 27 mmol/L (22-29); Chloride 100 mmol/L (98-107); Globulin 2.7 g/dL (1.3-4.6); Glomerular Filtration Rate 64.3 mL/min (90-130); Glucose 136 mg/dL (65-115); Lipase 23 U/L (13-60); Osmolality Calculated 289 mOsm/kg (285-295); Potassium 4.7 mmol/L (3.5-5.1); Sodium 138 mmol/L (136-145); Total Bilirubin 0.3 mg/dL (0.15-1.2); Total Protein 6.6 g/dL (6.6-8.7)
[2021-11-09] MEDS: iohexol 300 mg/mL 100 mL Btl IV (11:32)
[2021-11-09] MEDS: sodium chloride 0.9% 500 ML IV (12:42)
[2021-11-09] MEDS: ALPRAZolam 0.5 mg Tablet PO (12:43)
[2021-11-09 13:19] LABS: Add Urine Microscopic? YES; Bilirubin Urine Neg (Negative); Blood Urine Neg (Negative); Glucose Urine UA Norm (Normal); Ketones Urine Negative (Negative); Leukocyte Esterase Urine Negative (Negative); Nitrate Urine Negative (Negative); Protein Urine Neg (Negative); Specific Gravity, Urine 1.015 (1.005-1.030); Urine Appearance SL Hazy (CLEAR); Urine Color Yellow (Yellow); Urobilinogen Urine 1 mg/dL (Negative); pH Urine 7 (5-7)
[2021-11-09 13:22] LABS: Bacteria Urine 2+ /hpf; RBC Urine 0-4 /hpf (0-2)
[2021-11-09 13:23] LABS: Add Urine Culture? No
[2021-11-09 14:00] LABS: Lactate (Lactic Acid level) 2.5 mmol/L (0.5-2.2)
--- NOTE | 2021-11-09 14:03 | PC.PHAR ---
pt is from [facility] [phone] pierre from [facility] states the pts xanax was dced today after the pt was sent to [facility] the only medications the pt had today was the levothyroxine and zofran this am
[2021-11-09 14:34] VITALS: BP 138/85; PULSE 83; RESP 18; O2SAT 94
--- NOTE | 2021-11-09 15:00 | CTR_ITS ---
PROCEDURE INFORMATION: Exam: CT Abdomen And Pelvis Without Contrast Exam date and time: 11/09/2021 4:12 PM Age: 56 years old Clinical indication: Abdominal pain; Patient HX: N/v concern for sbo; Additional info: Concerned for sbo, oral contrast only TECHNIQUE: Imaging protocol: Computed tomography of the abdomen and pelvis without contrast. Radiation optimization: All CT scans at this facility use at least one of these dose optimization techniques: automated exposure control; mA and/or kV adjustment per patient size (includes targeted exams where dose is matched to clinical indication); or iterative reconstruction. Other contrast: Oral, Omni 300, 20 mL ; COMPARISON: CT abdomen pelvis w con* [id number] 11/09/2021 11:32 AM RADIATION DOSE METRICS: Total DLP (mGy-cm): 1361.53 FINDINGS: Liver: Normal. No mass. Gallbladder and bile ducts: Cholecystectomy. No ductal dilation. Pancreas: Normal. No ductal dilation. Spleen: Normal. No splenomegaly. Adrenal glands: Normal. No mass. Kidneys and ureters: Normal. No hydronephrosis. Stomach and bowel: No obstruction. No mucosal thickening. Scattered colonic diverticulosis. Appendix: No evidence of appendicitis. Intraperitoneal space: No free air. No significant fluid collection. Vasculature: No abdominal aortic aneurysm. Lymph nodes: No enlarged lymph nodes. Urinary bladder: Unremarkable as visualized. Reproductive: Unremarkable as visualized. Bones/joints: No acute fracture. Grade 1 anterolisthesis of L3 on L4 and L4 on L5. Soft tissues: Rectus diastasis. CT/CT abdomen pelvis wo con [id number] IMPRESSION: Negative for small bowel obstruction. No acute findings.
[2021-11-09 17:00] VITALS: BP 152/92; PULSE 85; RESP 15; O2SAT 96
[2021-11-09] MEDS: sodium chloride 0.9% 1,000 ML 125 ML IV ×2 (17:10→23:35)
[2021-11-09 17:14] VITALS: BMI 27.0
[2021-11-09 17:34] VITALS: BP 145/81; PULSE 85; RESP 16; TEMP 36.8; O2SAT 93
--- NOTE | 2021-11-09 17:50 | PM.CONSULT ---
Providers/Reason For Consult Consulting Physician/Specialty*: Raimundo Shelby MD Reason for Consult*: Bowel obstruction Requesting Physician: Dr. Wilde Attending Physician: Duarte Kim MD Primary Care Provider: Mik Vo DO History of Present Illness History of Present Illness Chief Complaint: Nausea and vomiting History of present illness: Karyn Jamison is a 56 year old female presents to the emergency department from care home with repeated nausea and vomiting associated with abdominal pain patient seems that she had some sort of food poisoning yesterday according to the description that I collected from the ER physician. And undergone a CT scan of the abdomen and pelvis with IV contrast only; Distal small bowel obstruction which may be related to a ventral hernia. WBC count of 10, hemoglobin 13.4, platelet count 330. Sodium 138, potassium 4.7, serum creatinine 0.9, lactic acid 2.5 General surgery was consulted for further evaluation and potential management Repeat CT scan of the abdomen pelvis was done per my request with oral contrast only and showed; Negative for small bowel obstruction. No acute findings. Patient reports that she started nausea vomiting in the morning and she had a bowel movement and passed gas Review of Systems General: Reports: 10 or more systems reviewed and unremarkable except in HPI and below Medications/Allergies Home Medications Medication Instructions Recorded Confirmed Last Taken Type levothyroxine 50 mcg tablet 50 mcg PO DAILY@05 04/03/21 11/09/21 11/09/21 History apixaban 5 mg tablet (Eliquis) 5 mg PO BID@08,20 07/11/21 11/09/21 11/08/21 History diltiazem HCl 30 mg tablet 30 mg PO DAILY@08 tab 07/11/21 11/09/21 11/08/21 History melatonin 5 mg capsule 5 mg PO BEDTIME@20 cap 07/11/21 11/09/21 11/08/21 History omeprazole 20 mg capsule,delayed 20 mg PO DAILY@20 07/11/21 11/09/21 11/08/21 History release alprazolam 0.25 mg tablet 0.25 mg PO BID@08,20 11/09/21 11/09/21 11/08/21 History alprazolam 0.25 mg tablet (Xanax) 0.25 mg PO DAILY PRN 11/09/21 11/09/21 Unknown History aluminum-mag hydroxide-simethicone 30 ml PO Q12H PRN 11/09/21 11/09/21 Unknown History 200 mg-200 mg-20 mg/5 mL oral susp ondansetron HCl 4 mg tablet 4 mg PO Q6H PRN 11/09/21 11/09/21 11/09/21 08:00 History (Zofran) risperidone 0.5 mg tablet 0.5 mg PO BID@08,20 11/09/21 11/09/21 11/08/21 History (Risperdal) trazodone 50 mg tablet 50 mg PO BEDTIME@11/09/21 11/09/21 11/08/21 History Allergies Allergy/AdvReac Type Severity Reaction Status Date / Time guaifenesin Allergy Unknown Verified 11/09/21 17:53 Current Medications Generic Name Dose Route Start Last Admin Trade Name Freq PRN Reason Stop Dose Admin Sodium Chloride 1,000 mls @ 125 mls/hr 11/09/21 15:00 11/09/21 17:10 Sodium Chloride 0.9% IV 125 mls/hr .Q8H ROWDY Administration PFSH Acute PFSH: Medical History Affective personality disorder Anxiety Anxiety state Arthritis Dependent personality disorder Depression Depression GERD (gastroesophageal reflux disease) History of dysthymic disorder Hypothyroidism IBS (irritable bowel syndrome) Intellectual disability Obsessive compulsive disorder Onychomycosis of toenail Panic attacks Psychiatric care Surgical History Hx of bladder repair surgery Family History Family/Other Diabetes Other Affective personality disorder Denies family history of CAD (coronary artery disease) Clotting disorder Dementia Hyperlipidemia Psychiatric illness Chronic kidney disease (CKD) Suicide Anesthesia complication Bleeding disorder Family history of premature coronary artery disease Lung disease Cancer Hypertension Stroke Social History Smoking and tobacco status: never smoked Alcohol intake: never Current occupational status: disabled Vitals/I&O/Wt Last Vital Signs Temp 98.3 F 11/09/21 17:34 Pulse 85 11/09/21 17:34 Resp 16 11/09/21 17:34 BP 145/81 11/09/21 17:34 Pulse Ox 93 11/09/21 17:34 11/09/21 11/09/21 11/09/21 06:59 14:59 22:59 Intake Total 500 / 500 Balance 500 / 500 Weight last 48 hrs Weight 157 lb 4.8 oz Weight 150 lb Physical Exam Const: COMMON NORMALS: no acute distress and patient oriented x3 GENERAL APPEARANCE: cooperative ORIENTATION/CONSCIOUSNESS: Yes awake, Yes oriented to person, Yes oriented to place and Yes oriented to time HENMT: COMMON NORMALS: normocephalic HEAD & SCALP: normocephalic Eye: COMMON NORMALS: Equal, round and reactive pupils present and no scleral icterus PUPIL: Yes Equal, round and reactive pupils present Lymph: LYMPHATIC: no lymphadenopathy noted Chest: COMMONS NORMALS: normal inspection of the chest Resp: COMMON NORMALS: normal respiratory effort and clear to auscultation bilaterally AUSCULTATION: clear to auscultation bilaterally Cardio: COMMON NORMALS: S1 normal heart sound present and S2 normal heart sound present; negative for No murmurs present (Cardio) HEART SOUNDS: S1 normal heart sound present and S2 normal heart sound present GI: COMMON NORMALS: Soft to palpation; negative for No hepatosplenomegaly present INSPECTION: Yes normal to inspection and Yes scar (Midline scar) PALPATION: Yes Soft to palpation, No Firmness to palpation present (GI), No Tenderness to palpation present (GI), No Guarding due to palpation present (GI), No Rigid due to palpation and No No hepatosplenomegaly present Neuro: COMMON NORMALS: patient oriented x3 SENSORIUM/ORIENTATION: Yes oriented to person, Yes oriented to place and Yes oriented to time Psych: COMMON NORMALS: mental status grossly normal Skin: COMMON NORMALS: no rashes or lesions noted GENERAL SKIN EXAM: no rashes or lesions noted Data : 11/09/21 10:50 11/09/21 10:50 A&P Assessment and plan (1) Small bowel obstruction: After thorough history physical examination and reviewing the chart and images with my personal interpretation. I do not see a distinct herniation of the bowel and based on the repeat CT scan with oral contrast,THE contrast going all the way distally to the colon. I do believe that the patient does have attenuated fascia. But no evidence of bowel obstruction at this point Patient did pass gas and had bowel movement in the morning IV fluid resuscitation Can have clear liquid diet Repeated physical exam Repeat labs in the morning Strict I's and O's If patient continues to do well by tomorrow can be discharged home Assurance and education All questions have been answered and all concerns have been addressed to patient's satisfaction. Status: Suspected Consult Attestations Medical Necessity Statement: Per admitting service Coding Level of Care Code Acute Program Architect for [facility] Fwd Exam Comprehensive Diagnoses Small bowel obstruction K56.609
[2021-11-09 19:48] VITALS: BP 133/84; PULSE 85; RESP 20; TEMP 36.6; O2SAT 96
[2021-11-09] MEDS: apixaban 5 mg Tablet PO (19:58)
[2021-11-09] MEDS: risperiDONE 0.25 mg Tablet 0.5 MG PO (19:58)
[2021-11-09] MEDS: trazodone 50 mg Tablet PO (19:58)
[2021-11-09] MEDS: ALPRAZolam 0.5 mg Tablet 0.25 MG PO (19:58)
[2021-11-09 23:00] VITALS: BP 110/76; PULSE 81; RESP 18; TEMP 36.4; O2SAT 94
--- NOTE | 2021-11-09 23:05 | PM.HP ---
Providers/Chief Complaint Admitting Physician: Durate Kim MD Primary Care Provider: Mik Vo DO Chief Complaint: DIARRHEA/ VOMITING History of Present Illness Karyn Jamison is a 56 year old female w/ h/o Anxiety Dis, Hypothy, Depression, DJD was transferred from her NH afer c/o nausea and vomiting since last night. Does know how many times she had vomited. She blames it on eating something bad for dinner. Had an episode of diarrhea. Thinks that she may have some blood tinged vmitus. Denies F/C, CP, SOB, cough. Pt was found to have a SBO on the CT Abd . Pt is being admitted for the management of SBO Review of Systems Narrative: General:?? Reports: 10 or mor e systems reviewed and unremarkable except in HPI and below Const:?? Denies: fever(s), chills, fatigue or malaise Eyes:?? Denies: change in vision or blurry v ision Card:?? Denies: chest pain or palpitations Resp:?? Denies: dyspnea or productive cough GI:?? Reports: abdominal pain, nausea and vomiting :?? Denies: flank pain Musc:?? Denies: extremity pain or extremity swelling Skin/Breast:?? Denies: rash or pr uritus Neuro:?? Denies: headache(s ) Psych:?? Denies: anxiety or depression Chance/Lymph:?? Denies: easy bleed ing All/Imm:?? Denies: urticaria, throat swelling o r facial swellin Medications/Allergies Home Medications Medication Instructions Recorded Confirmed Last Taken Type levothyroxine 50 mcg tablet 50 mcg PO DAILY@05 04/03/21 11/09/21 11/09/21 History apixaban 5 mg tablet (Eliquis) 5 mg PO BID@08,20 07/11/21 11/09/21 11/08/21 History diltiazem HCl 30 mg tablet 30 mg PO DAILY@08 tab 07/11/21 11/09/21 11/08/21 History melatonin 5 mg capsule 5 mg PO BEDTIME@20 cap 07/11/21 11/09/21 11/08/21 History omeprazole 20 mg capsule,delayed 20 mg PO DAILY@20 07/11/21 11/09/21 11/08/21 History release alprazolam 0.25 mg tablet 0.25 mg PO BID@08,20 11/09/21 11/09/21 11/08/21 History alprazolam 0.25 mg tablet (Xanax) 0.25 mg PO DAILY PRN 11/09/21 11/09/21 Unknown History aluminum-mag hydroxide-simethicone 30 ml PO Q12H PRN 11/09/21 11/09/21 Unknown History 200 mg-200 mg-20 mg/5 mL oral susp ondansetron HCl 4 mg tablet 4 mg PO Q6H PRN 11/09/21 11/09/21 11/09/21 08:00 History (Zofran) risperidone 0.5 mg tablet 0.5 mg PO BID@,11/09/21 11/09/21 11/08/21 History (Risperdal) trazodone 50 mg tablet 50 mg PO BEDTIME@20 11/09/21 11/09/21 11/08/21 History Allergies Allergy/AdvReac Type Severity Reaction Status Date / Time guaifenesin Allergy Unknown Verified 11/09/21 17:53 PFSH Acute PFSH: Medical History (Updated 11/09/21 @ 23:09 by Duarte Kim MD) Affective personality disorder Anxiety Anxiety state Arthritis Dependent personality disorder Depression Depression GERD (gastroesophageal reflux disease) History of dysthymic disorder Hypothyroidism IBS (irritable bowel syndrome) Intellectual disability Obsessive compulsive disorder Onychomycosis of toenail Panic attacks Psychiatric care Surgical History Hx of bladder repair surgery Family History Family/Other Diabetes Other Affective personality disorder Denies family history of CAD (coronary artery disease) Clotting disorder Dementia Hyperlipidemia Psychiatric illness Chronic kidney disease (CKD) Suicide Anesthesia complication Bleeding disorder Family history of premature coronary artery disease Lung disease Cancer Hypertension Stroke Social History Smoking and tobacco status: never smoked Alcohol intake: never Current occupational status: disabled Vitals/I&O/Wt Last Vital Signs Temp 97.9 F 11/09/21 19:48 Pulse 85 11/09/21 19:48 Resp 20 H 11/09/21 19:48 BP 133/84 11/09/21 19:48 Pulse Ox 96 11/09/21 19:48 11/09/21 11/09/21 11/10/21 14:59 22:59 06:59 Intake Total 500 / 500 Balance 500 / 500 Weight last 48 hrs Weight 71.35 kg Weight 68.039 kg Physical Exam Narrative: Const:?? COMMON NORMALS: no acute distress, p atient oriented x3 and healthy appea ring HENMT:?? COMMON NORMALS: no rmocephalic and at raumatic? HEAD & S CALP: normocephali c and atraumatic Eye:?? COMMON NORMALS: Eq ual, round and kvng ctive pupils prese nt and EOMs intact bilaterally? PUPI L: Yes Equal, roun d and reactive pup ils present Neck/C-Spine:?? COMMON NORMALS: fu ll ROM, supple and no JVD Lymph:?? LYMPHATIC: no lymp hadenopathy noted Chest:?? COMMONS NORMALS: n ormal inspection o f the chest and no rmal palpation of entire chest wall Resp:?? COMMON NORMALS: no rmal respiratory e ffort, No retracti ons and clear to a uscultation bilate rally? EFFORT & IN SPECTION: Yes able to speak in compl ete sentences and Yes symmetric ches t movement? AUSCUL TATION: clear to a uscultation bilate rally Cardio:?? COMMON NORMALS: no JVD, regular rate and regular rhyth m? RATE: regular r ate? RHYTHM: regul ar rhythm GI:?? COMMON NORMALS: No rmal to inspection , nondistended, no rmoactive bowel so unds present and S oft to palpation? INSPECTION: Yes no rmal to inspection ? PALPATION: Yes S oft to palpation? OTHER: right upper quadrant Tenderne ss noted to the ab domen mostly to th e epigastric other vieira soft nontende r nondistended no guarding rebound n oted :?? COMMON NORMALS: Ye s no CVA tendernes s? BLADDER/KIDNEY EXAM: Yes no CVA t enderness Back/Pelvis:?? COMMON NORMALS: no CVA tenderness Extremity:?? COMMON NORMALS: no rmal to inspection and full ROM Neuro:?? COMMON NORMALS: brian lopeznt oriented x3, CN's II-XII intac t bilaterally, mov es all extremities and no focal lan r deficits Psych:?? COMMON NORMALS: me ntal status grossl y normal, Normal t hought process pre sent, cooperative and normal affect? THOUGHT PROCESS: Normal thought pro cess present Skin:?? COMMON NORMALS: no rashes or lesions noted? 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
[2021-11-10 03:00] VITALS: BP 102/64; PULSE 83; RESP 18; TEMP 36.4; O2SAT 93
[2021-11-10] MEDS: levothyroxine 50 mcg Tablet PO (04:58)
[2021-11-10 07:00] VITALS: BP 142/84; PULSE 84; RESP 18; TEMP 36.6; O2SAT 93
[2021-11-10 07:50] LABS: Basophils # 0.1 10^3/uL (0.0-0.1); Basophils % 0.9 %; Eosinophils # 0.3 10^3/uL (0.0-0.8); Hematocrit 38.5 % (37.0-47.0); Hemoglobin 12.1 g/dL (11.5-15.3); Lymphocytes # 1.1 10^3/uL (0.8-4.8); Lymphocytes % 19.7 %; Mean Corpuscular HGB Conc 31.4 g/dL (30.0-36.0); Mean Corpuscular Hemoglobin 30.6 pg (28.0-34.0); Mean Corpuscular Volume 97.5 fl (81-99); Mean Platelet Volume 9.2 fL (7.4-10.4); Monocytes # 0.5 10^3/uL (0.2-0.9); Monocytes % 8.8 %; Neutrophils # 3.51 10^3/uL (1.8-7.7); Neutrophils % 65.4 %; Nucleated Red Blood Cells % 0 %; Platelet Count 281 10^3/cmm (130-400); Red Blood Count 3.95 10^6/uL (4.1-5.3); Red Cell Distribution Width 15.1 % (12.1-15.1); White Blood Count 5.4 10^3/uL (4.0-10.0)
[2021-11-10 08:14] LABS: Alanine Aminotransferase 11 U/L (0-33); Albumin Level 3.2 g/dL (3.5-5.2); Alkaline Phosphatase 80 IU/L (35-105); Aspartate Amino Transferase 13 U/L (0-32); Blood Urea Nitrogen 11 mg/dL (6-20); Calcium 8.5 mg/dL (8.5-10.5); Carbon Dioxide 25 mmol/L (22-29); Chloride 103 mmol/L (98-107); Globulin 2.5 g/dL (1.3-4.6); Glomerular Filtration Rate 73.7 mL/min (90-130); Glucose 96 mg/dL (65-115); Osmolality Calculated 281 mOsm/kg (285-295); Sodium 136 mmol/L (136-145); Total Bilirubin 0.7 mg/dL (0.15-1.2); Total Protein 5.7 g/dL (6.6-8.7)
[2021-11-10 08:19] LABS: Anion Gap 12.7 (5-19); Potassium 4.7 mmol/L (3.5-5.1)
[2021-11-10] MEDS: sodium chloride 0.9% 1,000 ML 125 ML IV ×2 (09:00→15:36)
[2021-11-10] MEDS: dilTIAZem 30 mg Tablet PO (09:01)
[2021-11-10] MEDS: pantoprazole DR 40 mg Tablet PO (09:01)
[2021-11-10] MEDS: risperiDONE 0.25 mg Tablet 0.5 MG PO ×2 (09:01→19:39)
[2021-11-10] MEDS: apixaban 5 mg Tablet PO ×2 (09:02→19:39)
[2021-11-10] MEDS: ALPRAZolam 0.5 mg Tablet 0.25 MG PO ×2 (09:02→19:39)
--- NOTE | 2021-11-10 10:53 | PC.CHAP ---
Pastoral Care Encounter/Spiritual Assessment Type of Contact [] Declined towel inspector visit [] Patient/Family/Request visit [] Outpatient visit [] Follow-up visit [] Physician referral [] Code/Alert [x] Routine visit [] Staff referral [] Actively dying [] Patient sleeping [] Family support [] [] Out of room [] Palliative care [] [] Receiving care in room [] Pre-surgical visit [] Trauma [] Long length of stay [] ICU visit [] Other: Relational/Emotional Strength [] Patient feels connected with others/family/visitors/staff [] Distress [] Loneliness/isolation [] Abandonment Spirituality of Patient [] Person of Karla [] Attends Adventism of their Karla [] Believes in Prayer [] Reads Bible or Taoist materials [] There are Spiritual issues to be addressed Photo Finisher Interventions [x] Prayer [] Active listening [] Non-anxious presence [] Spiritual/emotional support [] Crisis/trauma care [] Spiritual counseling [] Bereavement support [] Provided bereavement packet [] Provided Bible/devotional materials [] Provided toy/stuffed animal, coloring book to patient or family member [] Provided Communion [] Anointing/[place] [] Salvation [x] Completed spiritual assessment [] Other: Impact on Illness or Injury [] Angry [] Fearful [] Anxious [] Often cries [] Exhaustion [] Unable to work [] Unable to attend scientologist [] Unable to walk/stand [] Unable to read [] Unable to drive [] Unable to eat/drink [] Unable to sleep [] Unable to be with family [] Patient intubated [] Other: Summary Time spent with patient
[2021-11-10 11:00] VITALS: BP 148/83; PULSE 92; RESP 18; O2SAT 92
[2021-11-10 15:00] VITALS: BP 161/82; PULSE 85; RESP 18; TEMP 36.7; O2SAT 96
--- NOTE | 2021-11-10 17:13 | P.PN_ITS ---
Subjective Subjective: Patient seems to be doing well and denies any abdominal pain. tolerating clear liquid diet and passing gas. Adequate urine output Medications: Reviewed: Yes Vitals/I&O/Wt Last Vital Signs Temp 98.0 F 11/10/21 15:00 Pulse 85 11/10/21 15:00 Resp 18 11/10/21 15:00 BP 161/82 11/10/21 15:00 Pulse Ox 96 11/10/21 15:00 11/10/21 11/10/21 11/10/21 06:59 14:59 22:59 Intake Total 922.083 / 5861.839 7999 / 2080 825 / 2905 Output Total 450 / 450 150 / 150 550 / 700 Balance 472.083 / 2175.980 9641 / 1930 275 / 2205 Weight last 48 hrs Weight 157 lb 4.8 oz Weight 150 lb Physical Exam Narrative: Patient is conscious alert oriented X3 No apparent distress BMI 27 Head and neck examination PERRLA no masses no cervical lymphadenopathy no jaundi ce Abdomen nontender nondistended soft no organomegaly guarding or rigidity/no signs of peritonitis Data : 11/10/21 07:39 11/10/21 07:39 A&P Assessment and plan (1) Small bowel obstruction: Condition resolved and patient can have her diet advanced as tolerated. Should patient continue to do well she can be discharged home from general surgery standpoint of view Assurance and education All questions have been answered and all concerns have been addressed to patient's satisfaction. Status: Suspected Attestations Medical Necessity Statement*: Per admitting service Coding Level of Care Code Acute Equal Opportunity Specialist for [facility] Fwd Diagnoses Small bowel obstruction K56.609
--- NOTE | 2021-11-10 17:21 | PM.PN ---
Subjective Subjective: Pt is doing better. Pt was started on Full liquid diet by the surgical service. Tolerating diet. No further N/V, diarrhea. Abd pain mild Vitals/I&O/Wt Last Vital Signs Temp 98.0 F 11/10/21 15:00 Pulse 85 11/10/21 15:00 Resp 18 11/10/21 15:00 BP 161/82 11/10/21 15:00 Pulse Ox 96 11/10/21 15:00 11/10/21 11/10/21 11/10/21 06:59 14:59 22:59 Intake Total 922.083 / 2364.190 5580 / 2080 825 / 2905 Output Total 450 / 450 150 / 150 550 / 700 Balance 472.083 / 8075.152 4943 / 1930 275 / 2205 Weight last 48 hrs Weight 71.35 kg Weight 68.039 kg Physical Exam Narrative: NAD CVS: S1S2, RRR, Mur (-) RS: CTA Abd: soft, faint BS+, minimal tender general Edema (-) STYLE ADVISOR: A&Ox3 Data : 11/10/21 07:39 11/10/21 07:39 A&P Assessment and plan (1) Small bowel obstruction: clinically improving Status: Suspected (2) Nausea & vomiting: Status: Acute (3) Panic attacks: Status: Acute (4) Intellectual disability: Status: Acute (5) Anxiety: Status: Acute (6) Pulmonary emboli: Status: Acute Plan Sugical consult appreciated Gradulally advance diet Resume home meds DVT prophylaxis GI Prophylaxis Attestations Medical Necessity Statement*: Pt w/ SBO is slowly improving but has not advanced to soft diet yet. Will need continued care and hospitalization Time Spent in Patient Care: 40 min Coding Level of Care Code Acute Electronic Prepress Operator for [facility] Fwd Diagnoses Small bowel obstruction K56.609 Nausea & vomiting R11.2 Panic attacks F41.0 Intellectual disability F79 Anxiety F41.9 Pulmonary emboli I26.99
[2021-11-10] MEDS: trazodone 50 mg Tablet PO (19:39)
[2021-11-10 20:23] VITALS: BP 135/76; PULSE 79; RESP 15; TEMP 36.4; O2SAT 95
[2021-11-11] VITALS: BP 108/68; PULSE 84; RESP 15; TEMP 36.7; O2SAT 93
[2021-11-11 03:55] VITALS: BP 103/63; PULSE 80; RESP 16; TEMP 36.6; O2SAT 93
[2021-11-11] MEDS: levothyroxine 50 mcg Tablet PO (04:35)
[2021-11-11 08:20] VITALS: BP 129/75; PULSE 84; RESP 16; TEMP 36.5; O2SAT 93
[2021-11-11] MEDS: dilTIAZem 30 mg Tablet PO (08:35)
[2021-11-11] MEDS: apixaban 5 mg Tablet PO (08:35)
[2021-11-11] MEDS: pantoprazole DR 40 mg Tablet PO (08:35)
[2021-11-11] MEDS: ALPRAZolam 0.5 mg Tablet 0.25 MG PO (08:35)
[2021-11-11] MEDS: risperiDONE 0.25 mg Tablet 0.5 MG PO (08:40)
[2021-11-11 11:51] VITALS: BP 122/75; PULSE 83; RESP 15; TEMP 36.7; O2SAT 93
--- NOTE | 2021-11-11 12:00 | P.DS_ITS ---
Discharge Providers Date of Admission: 11/09/21 14:11 Date of Discharge: November 11, 2021 Attending Provider at Admission: Duarte Kim MD Attending Provider at Discharge: Duarte Kim MD Primary Care Provider: Mik Vo DO Diagnoses at Discharge Discharge Diagnosis (1) Small bowel obstruction: Status: Suspected (2) Nausea & vomiting: Status: Acute (3) Panic attacks: Status: Acute (4) Intellectual disability: Status: Acute (5) Anxiety: Status: Acute (6) Pulmonary emboli: Status: Acute (7) Acute infective gastroenteritis: Status: Acute Reason for Visit Reason for Visit: DIARRHEA/ VOMITING Hospital Course Hospital Course Karyn Jamison is a 56 year old female w/ h/o Anxiety Dis, Hypothy, Depression, DJD was transferred from her NH afer c/o nausea and vomiting since last night. Does know how many times she had vomited. She blames it on eating something bad for dinner. Had an episode of diarrhea. Thinks that she may have some blood tinged vmitus. Denies F/C, CP, SOB, cough. Pt was found to have a SBO on the CT Abd . Pt is being admitted for the management of SBO [facility] Surgical consulkt was obtained for the suspected SBO. However after reveiwng the CT it did not seem that she had SBO but more ikely Ac Gastroenteris. Pt diet was gradually adnced but was never NPO by the surgical service. Pt's symptoms improved and tolerated regular diet. Pt will transfer back to her NH. Physical Exam Narrative: NAD CVS: S1S2, RRR, Mur (-) RS: CTA Abd: soft, faint BS+, minimal tender general Edema (-) OCEANOGRAPHER GEOLOGICAL: A&Ox3 Discharge Data Studies Completed and Pending Completed Studies During Hospitalization Category Date Time Status CT abdomen pelvis w con* [id number] Urgent Cat Scan 11/09/21 10:[address] abdomen pelvis wo con [id number] Urgent Cat Scan 11/09/21 15:00 Completed Radiology Impressions Abdomen/Pelvis CT 11/09/21 15:00 IMPRESSION: Negative for small bowel obstruction. No acute findings. Laboratory Results WBC 5.4 10^3/uL (4.0-10.0) 11/10/21 07:39 RBC 3.95 10^6/uL (4.1-5.3) L 11/10/21 07:39 Hgb 12.1 g/dL (11.5-15.3) 11/10/21 07:39 Hct 38.5 % (37.0-47.0) 11/10/21 07:39 MCV 97.5 fl (81-99) 11/10/21 07:39 MCH 30.6 pg (28.0-34.0) 11/10/21 07:39 MCHC 31.4 g/dL (30.0-36.0) 11/10/21 07:39 RDW 15.1 % (12.1-15.1) 11/10/21 07:39 Plt Count 281 10^3/cmm (130-400) 11/10/21 07:39 MPV 9.2 fL (7.4-10.4) 11/10/21 07:39 Neut % (Auto) 65.4 % 11/10/21 07:39 Lymph % (Auto) 19.7 % 11/10/21 07:39 [place] % (Auto) 8.8 % 11/10/21 07:39 Eos % (Auto) 5.0 % 11/10/21 07:39 Baso % (Auto) 0.9 % 11/10/21 07:39 Neut # (Auto) 3.51 10^3/uL (1.8-7.7) 11/10/21 07:39 Lymph # (Auto) 1.1 10^3/uL (0.8-4.8) 11/10/21 07:39 [place] # (Auto) 0.5 10^3/uL (0.2-0.9) 11/10/21 07:39 Eos # (Auto) 0.3 10^3/uL (0.0-0.8) 11/10/21 07:39 Baso # (Auto) 0.1 10^3/uL (0.0-0.1) 11/10/21 07:39 Nucleated RBC % (auto) 0 % 11/10/21 07:39 Nucleated RBCs # 0.0 /100WBC 11/10/21 07:39 Sodium 136 mmol/L (136-145) 11/10/21 07:39 Potassium 4.7 mmol/L (3.5-5.1) 11/10/21 07:39 Chloride 103 mmol/L (98-107) 11/10/21 07:39 Carbon Dioxide 25 mmol/L (22-29) 11/10/21 07:39 Anion Gap 12.7 (5-19) 11/10/21 07:39 BUN 11 mg/dL (6-20) 11/10/21 07:39 Creatinine 0.8 mg/dL (0.5-0.9) 11/10/21 07:39 GFR Calculation 73.7 mL/min (90-130) L 11/10/21 07:39 Glucose 96 mg/dL (65-115) 11/10/21 07:39 Calculated Osmolality 281 mOsm/kg (285-295) L 11/10/21 07:39 Lactate 2.5 mmol/L (0.5-2.2) H 11/09/21 10:50 Calcium 8.5 mg/dL (8.5-10.5) 11/10/21 07:39 Total Bilirubin 0.7 mg/dL (0.15-1.2) 11/10/21 07:39 AST 13 U/L (0-32) 11/10/21 07:39 ALT 11 U/L (0-33) 11/10/21 07:39 Alkaline Phosphatase 80 IU/L (35-105) 11/10/21 07:39 C-Reactive Protein 3.8 mg/L (0.0-4.9) 11/09/21 10:50 Total Protein 5.7 g/dL (6.6-8.7) L 11/10/21 07:39 Albumin 3.2 g/dL (3.5-5.2) L 11/10/21 07:39 Globulin 2.5 g/dL (1.3-4.6) 11/10/21 07:39 Lipase 23 U/L (13-60) 11/09/21 10:50 Urine Color Yellow (Yellow) 11/09/21 12:47 Urine Appearance Sl hazy (CLEAR) 11/09/21 12:47 Urine pH 7 (5-7) 11/09/21 12:47 Ur Specific [place] 1.015 (1.005-1.030) 11/09/21 12:47 Urine Protein Neg (Negative) 11/09/21 12:47 Urine Glucose (UA) Norm (Normal) 11/09/21 12:47 Urine Ketones Negative (Negative) 11/09/21 12:47 Urine Blood Neg (Negative) 11/09/21 12:47 Urine Nitrate Negative (Negative) 11/09/21 12:47 Urine Bilirubin Neg (Negative) 11/09/21 12:47 Urine Urobilinogen 1 mg/dL (Negative) H 11/09/21 12:47 Ur Leukocyte Esterase Negative (Negative) 11/09/21 12:47 Urine RBC 0-4 /hpf (0-2) H 11/09/21 12:47 Urine WBC 5-10 /hpf (0-5) H 11/09/21 12:47 Ur Squamous Epith Cells 10-15 /hpf (0-5) H 11/09/21 12:47 Amorphous Sediment Not Reportable 11/09/21 12:47 Urine Bacteria 2+ /hpf (NONE) H 11/09/21 12:47 Vitals Last Vital Signs Temp 98.1 F 11/11/21 11:51 Pulse 83 11/11/21 11:51 Resp 15 11/11/21 11:51 BP 122/75 11/11/21 11:51 Pulse Ox 93 11/11/21 11:51 Discharge Plan Discharge Patient Disposition: Xfer [facility] Condition: Stable Prescriptions: Continued omeprazole 20 mg capsule,delayed release(DR/EC) 20 mg PO DAILY@20 0RF Eliquis 5 mg tablet 5 mg PO BID@08,20 0RF diltiazem HCl 30 mg tablet 30 mg PO DAILY@08 0RF melatonin 5 mg capsule 5 mg PO BEDTIME@20 0RF levothyroxine 50 mcg tablet 50 mcg PO DAILY@05 0RF Zofran 4 mg Tablet 4 mg PO Q6H PRN (Reason: Nausea And Vomiting) 0RF Xanax 0.25 mg Tablet 0.25 mg PO DAILY PRN (Reason: Anxiety) 0RF alum-mag hydroxide-simeth 200-200-20 mg/5 mL Suspension 30 ml PO Q12H PRN (Reason: upset stomach) 0RF Risperdal 0.5 mg Tablet 0.5 mg PO BID@08,20 0RF trazodone 50 mg tablet 50 mg PO BEDTIME@20 0RF alprazolam 0.25 mg tablet 0.25 mg PO BID@08,20 0RF Discharge Orders: Discharge Order (Routine); Ordered 11/11/21 Ordered By: Duarte Kim Referrals: Mik Vo DO [Primary Care Provider] - 11/22/21 11:00 am Discharge Diet: Advance as tolerated Discharge Activity: Resume usual activity Patient Instructions: Bowel Obstruction (GEN), Opioid Safety Discharge Attestations Time Spent in Discharge Care*: greater than 30 min Quality Metrics Clinical Quality Measures [ No reported AMI, CVA or VTE this stay] Coding Level of Care Code Acute [facility]g [facility] note Diagnoses Small bowel obstruction K56.609 Nausea & vomiting R11.2 Panic attacks F41.0 Intellectual disability F79 Anxiety F41.9 Pulmonary emboli I26.99 Acute infective gastroenteritis A09
--- NOTE | 2021-11-11 13:54 | PC.NURSE ---
Report called to Radha Osei, all questions were answered at this time. Patients IV was discontinued and belongings were accounted for. Vitals stable. Patient had bowel movement before discharging.
[2021-11-11 14:30] VITALS: BP 122/75; PULSE 83; RESP 15; TEMP 36.7; O2SAT 93
== END 2021-11-11 14:32 | disposition skilled nursing facility (03) | DRG 392 ==
LOC: ER 15:06 → MEDSURG 15:53
PROVIDERS: Admitting Provider Internal Medicine; Emergency Provider Emergency Medicine; PCP Internal Medicine; Visit Provider Internal Medicine
DX: A09 Infectious gastroenteritis and colitis, unspecified (principal); F41.9 Anxiety disorder, unspecified; K21.9 Gastro-esophageal reflux disease without esophagitis; E03.9 Hypothyroidism, unspecified; K58.9 Irritable bowel syndrome, unspecified; R11.2 Nausea with vomiting, unspecified; F79 Unspecified intellectual disabilities; F41.0 Panic disorder [episodic paroxysmal anxiety]; Z79.01 Long term (current) use of anticoagulants
CPT/HCPCS: 74176; 74177; 80053; 81001; 83605; 83690; 85025; 86140; 96360; 96361; 99285; J7030; J7040; Q9967

== ENCOUNTER → 2022-12-25 07:48 | Outpatient (BNVA) | payer MEDICAID, SELFPAY | PROVIDERS: PCP Family Medicine; Visit Provider Otolaryngology | DX: H90.3 Sensorineural hearing loss, bilateral (principal); H61.22 Impacted cerumen, left ear | CPT/HCPCS: 69210; 99202; 99203 ==